=== PATIENT | male | born 1960 | race Asian ===

== ENCOUNTER → 2021-11-04 16:48 | Outpatient (CLI) | payer OTHER, SELFPAY ==
--- NOTE | 2021-11-04 16:52 | DI.RAD.S_ITS ---
PROCEDURE: XR CERVICAL SPINE 2V OR 3V INDICATIONS: chronic neck pain TECHNIQUE: 3 view(s) of the cervical spine were acquired. COMPARISON: None. FINDINGS: Bones: No fractures or dislocations to the T1 level. The lateral masses of C1 appear intact on the odontoid view. No suspicious bony lesions. Soft tissues: No prevertebral soft tissue swelling. IMPRESSION: No acute osseous lesion. If symptoms and/or clinical suspicion for pathology persists, evaluation with MRI should be considered for further assessment. Dictated by: Emmanuelle Ly MD, PhD on 11/05/2021 at 8:07 Approved by: Emmanuelle Ly MD, PhD on 11/05/2021 at 8:26
== END ==
PROVIDERS: PCP Family Medicine; Referring Provider Family Medicine; Visit Provider Family Medicine
DX: M54.2 Cervicalgia (principal); R51.9 Headache, unspecified; G89.29 Other chronic pain
CPT/HCPCS: 72040

== ENCOUNTER → 2022-01-07 09:04 | Outpatient (CLI) | payer OTHER, SELFPAY ==
[2022-01-07 09:50] LABS: Add Manual Diff / Slide Review NO; Basophils Absolute Auto 100 /uL (0-100); Eosinophils Absolute Auto 100 /uL (0-450); Eosinophils Percent Auto 1.8 % (2-4); Hematocrit 44.9 % (41-53); Hemoglobin 15.3 g/dL (13.5-17.5); Lymphocytes Absolute Auto 1700 /uL (1100-4500); Lymphocytes Percent Auto 31.9 % (25-40); Mean Corpuscular HGB Conc 34.1 % (30-36); Monocytes Absolute Auto 300 /uL (0-900); Monocytes Percent Auto 6.7 % (3-14); Neutrophils Absolute Auto 3000 /uL (1500-7000); Neutrophils Percent Auto 58.6 % (50-75); Platelet Count 205 X10^3/uL (150-400); Red Blood Cell Count 5.29 X10^6/uL (4.5-5.9); Red Cell Distribution Width 12.5 % (11.6-14.8); White Blood Cell Count 5.2 X10^3/uL (4.5-11.0)
[2022-01-07 11:59] LABS: Creatinine Urine Random 62.5 mg/dL; Microalbumin Urine Random < 0.6 mg/dL (0-1.6)
[2022-01-08 03:07] LABS: HEMOLYSIS < 15 (0-50)
[2022-01-08 03:13] LABS: Alanine Aminotransferase 34 IU/L (<50); Albumin 4.3 g/dL (3.5-5.0); Albumin Globulin Ratio 1.3 (1.0-2.8); Alkaline Phosphatase 68 U/L (38-126); Aspartate Aminotransferase 33 IU/L (17-59); BUN Creatinine Ratio 16.7 (6-22); Bilirubin Total 0.9 mg/dL (0.2-1.3); Blood Urea Nitrogen 16 mg/dL (9-20); Calcium 8.8 mg/dL (8.4-10.2); Carbon Dioxide 27 mmol/L (22-32); Chloride 105 mmol/L (98-107); Cholesterol 246 mg/dL (140-199); Estimated Glomerular Filt Rate > 60 mL/min (>60); Globulin 3.3 g/dL (1.7-4.1); Glucose 99 mg/dL (80-110); HDL Cholesterol 70 mg/dL (40-60); LDL Cholesterol Calculated 150 mg/dL (<100); Potassium 4.3 mmol/L (3.4-5.1); Sodium 140 mmol/L (137-145); Total Protein 7.6 g/dL (6.3-8.2); Triglycerides 132 mg/dL (35-150)
[2022-01-08 03:43] LABS: TSH w/ Reflex to FT4 0.94 uIU/mL (0.47-4.68)
[2022-01-09 15:07] LABS: Prostate Specific Antigen Scrn 5.64 ng/mL (0.1-4.0)
== END ==
PROVIDERS: PCP Family Medicine; Referring Provider Family Medicine; Visit Provider Family Medicine
DX: E78.5 Hyperlipidemia, unspecified (principal); K21.9 Gastro-esophageal reflux disease without esophagitis; K76.89 Other specified diseases of liver; R97.20 Elevated prostate specific antigen [PSA]; Z12.5 Encounter for screening for malignant neoplasm of prostate
CPT/HCPCS: 36415; 80053; 80061; 82043; 82570; 84443; 85025; G0103

== ENCOUNTER → 2022-05-06 09:25 | Outpatient (CLI) | payer OTHER, SELFPAY ==
[2022-05-06 10:01] LABS: Hemoglobin A1C% w Est Avg Glu 5.5 % (4.0-6.0)
[2022-05-06 10:55] LABS: Prostate Specific Antigen 6.11 ng/mL (0.10-4.00)
== END ==
PROVIDERS: Family Provider Family Medicine; PCP Family Medicine; Referring Provider Specialist; Visit Provider Specialist
DX: R73.03 Prediabetes (principal); R97.20 Elevated prostate specific antigen [PSA]
CPT/HCPCS: 36415; 83036; 84153

== ENCOUNTER → 2022-05-14 07:56 | Outpatient (CLI) | payer OTHER, SELFPAY ==
--- NOTE | 2022-05-14 09:13 | DI.MRI.S_ITS ---
PROCEDURE: MR PELIS WO/W CON INDICATIONS: Prostate CA, elevated PSA TECHNIQUE: Coronal HASTE, axial T1 FSE with fat saturation, 3-plane nonbreath-hold T2 FSE. After the administration of contrast, dynamic axial, delayed axial and coronal VIBE or 2-D FLASH with fat saturation through the pelvis. Optional diffusion weighted imaging and ADC may be performed. COMPARISON: None. FINDINGS: Image quality: Diffusion weighted and dynamic contrast enhanced images are diagnostic. Prostate: Gland size is 4.9 x 3.8 x 4.7 cm; ellipsoid gland volume is 45.5 mL. Lesion size(s): Lesion 1: 0.8 cm in AP diameter measured in the axial T2 plane. Lesion 2: 1.2 cm in the oblique transverse direction measured on the axial T2 sequence. Lesion 3: About 1.1 cm in the AP direction measured on diffusion-weighted imaging. Lesion 4: 0.9 cm in the oblique AP direction Lesion 5: 0.8 cm in the oblique AP direction Lesion location(s) (sector): Lesion 1: Left posterior transition zone at the gland base Lesion 2: Left posterolateral peripheral zone from mid gland to apex Lesion 3: Right central transition zone at the mid gland. Lesion 4: Right central transition zone at the mid gland slightly more caudal than lesion three Lesion 5: Right anterior transition zone at the apex. Lesion description: Lesion 1: Ovoid lesion with indistinct margin. No disruption of the pseudo capsule. Lesion 2: Wedge-shaped indistinct lesion with retraction of the capsule. Lesion 3: Indistinct, heterogeneous area with patchy abnormal signal Lesion 4: Ovoid unencapsulated lesion with an indistinct margin Lesion 5: Ovoid unencapsulated lesion with an indistinct margin T2 weighted imaging (T2WI) morphology score: Lesion 1: Four Lesion 2: Two Lesion 3: Four Lesion 4: Four Lesion 5: Four Diffusion weighted imaging (DWI) morphology score: Lesion 1: Three Lesion 2: Three Lesion 3: Three Lesion 4: Three Lesion 5: Two Dynamic contrast enhancement (DCE): Lesion 1: Present Lesion 2: Present Lesion 3: Present Lesion 4: Absent Lesion 5: Absent Lesion PI-RADS score: Lesion 1: PI-RADS four Lesion 2: PI-RADS three, differential diagnosis of fibrosis/glandular atrophy Lesion 3: PI-RADS four Lesion 4: PI-RADS four, differential diagnosis unencapsulated BPH nodule. Lesion 5: PI-RADS four, differential diagnosis of unencapsulated BPH nodule. Genitourinary system: Bladder wall thickness is normal. Distal ureters are non distended. Bowel and peritoneum: Small amount of dependent free fluid in the pelvis. Inferior colon and small bowel loops are normal in caliber. Nodes and vessels: No pelvic or inguinal adenopathy by size criteria. Iliac vessels are normal in caliber. Soft tissues: No inguinal hernias. Bones: Marrow demonstrates normal overall signal, without lesions to suggest metastases. IMPRESSION: 1. Heterogeneous, minimally enlarged prostate gland with areas indeterminate or mildly suspicious for prostate cancer, PI-RADS three and PI-RADS four. Index lesion is lesion 1. 2. No adenopathy. 3. Nonspecific free fluid in the pelvis. Clinical evaluation recommended. Dictated by: Krysten Shields M.D. on 05/15/2022 at 13:06 Approved by: Krysten Shields M.D. on 05/15/2022 at 14:18
== END ==
PROVIDERS: Family Provider Family Medicine; PCP Family Medicine; Referring Provider Specialist; Visit Provider Specialist
DX: R97.20 Elevated prostate specific antigen [PSA] (principal); N40.1 Benign prostatic hyperplasia with lower urinary tract symptoms; N13.8 Other obstructive and reflux uropathy
CPT/HCPCS: 72197; A9579

== ENCOUNTER → 2022-06-23 06:49 | Outpatient (CLI) | payer OTHER, SELFPAY ==
--- NOTE | 2022-06-23 06:50 | DI.US.S_ITS ---
PROCEDURE: US ABDOMEN LIMITED INDICATIONS: LIVER CYST TECHNIQUE: Real-time focused scanning was performed of the abdomen, with image documentation. COMPARISON: [facility], MR, MR PELVIS WO/W CON, 05/14/2022, 8:01. FINDINGS: The liver demonstrates normal size and overall normal echotexture. Numerous liver cysts are seen. There is a bilobed cyst seen within the right liver anterior to the demetra hepatis measuring 2.1 x 2 x 1.7 cm. Within the right liver laterally, there is an anechoic cyst measuring 4.3 x 3.9 x 4.4 cm. Within the right mid liver anteriorly, there is an anechoic cyst with thin nonvascular septations measuring 1.9 x 1.9 x 1.9 cm. No findings of gallstones or sludge are seen. The gallbladder wall is not thickened, measuring 3 mm or less. No specific pericholecystic fluid is seen. The sonographic Rankin sign is negative. There is no biliary dilatation, the common bile duct measures 6 mm. No significant pancreatic abnormality is seen on these images. No free fluid can be seen. IMPRESSION: Several liver cysts are seen, without shelley, suspicious features. Dictated by: James Villanueva M.D. on 06/23/2022 at 16:49 Approved by: James Villanueva M.D. on 06/23/2022 at 16:51
== END ==
PROVIDERS: Family Provider Family Medicine; PCP Family Medicine; Referring Provider Family Medicine; Visit Provider Family Medicine
DX: K76.89 Other specified diseases of liver (principal)
CPT/HCPCS: 76705

== ENCOUNTER → 2022-07-20 07:18 | Outpatient (CLI) | payer OTHER, SELFPAY ==
--- NOTE | 2022-07-20 07:19 | DI.MRI.S_ITS ---
PROCEDURE: MR HEAD/BRAIN WO CON INDICATIONS: occipital head pain TECHNIQUE: Non-contrast axial T1 spin echo, axial T2 fast spin echo, sagittal and axial FLAIR, coronal T2 fast spin echo, axial gradient echo, axial diffusion and ADC through the brain. COMPARISON: [facility], MR, MR CERVICAL SPINE WO CON, 07/20/2022, 7:38. FINDINGS: Image quality: This examination is limited by involuntary motion artifact. CSF spaces: Ventricles appear symmetric in size and shape. Basal cisterns are patent. No extra-axial fluid collections. Brain: No intracranial bleeds or mass effects. There is cerebral volume loss for age. There are periventricular and deep white matter chronic small vessel ischemic changes. Brainstem appears normal. Diffusion-weighted images show no acute ischemic insults. No chronic ischemic insults. Normal intravascular flow voids are present. Skull and face: Calvarial bone marrow is normal in signal. Orbits are normal. Sinuses: Sinuses and mastoids are clear. IMPRESSION: Unremarkable noncontrast brain MRI for age, without a cause of the patient's presenting symptoms identified. To the limits of this MRI, no findings of masses or mass effect. No brain edema. No hydrocephalus. Dictated by: James Villanueva M.D. on 07/20/2022 at 8:36 Approved by: James Villanueva M.D. on 07/20/2022 at 8:37
--- NOTE | 2022-07-20 07:19 | DI.MRI.S_ITS ---
PROCEDURE: MR CERVICAL SPINE WO CON INDICATIONS: chronic neck pain not improved with PT TECHNIQUE: Noncontrast sagittal T1 spin echo and T2 fast spin echo, sagittal STIR, foraminal oblique sagittal T2 fast spin echo, and axial gradient echo or T2 fast spin echo through the cervical spine. COMPARISON: [facility], MR, MR HEAD/BRAIN WO CON, 07/20/2022, 7:38. [facility], CR, XR CERVICAL SPINE 2V OR 3V, 11/04/2021, 16:57. FINDINGS: Image quality: This examination is limited by involuntary motion artifact. Alignment and Curvature: There is normal bony alignment. Bone Marrow: Marrow demonstrates normal overall signal. Spinal Cord: There is a T2 hyperintense ovoid focus seen within the anterior spinal cord at the C4 level, as on series 5, image 8, measuring up to 5 mm. This demonstrates low signal on T1 weighted imaging. No surrounding edema is seen. Visualized spinal cord otherwise has normal size and signal. No cerebellar tonsillar herniation. Paraspinous Soft Tissues: No paravertebral masses. Prevertebral soft tissues are normal in thickness. C2-C3: The disc height and disk signal are well-preserved. Mild disc osteophyte complex is seen, which is eccentric to the right. Mild facet joint hypertrophy is seen. There is moderate right-sided and mild left-sided neural foraminal narrowing. No central canal narrowing is seen. C3-C4: The disc height is well-preserved. Loss of disc signal is seen at this level. A mild degree of generalized disc osteophyte complex is seen. There is [id number] right-sided and moderate left-sided facet hypertrophy. There is at least moderate left-sided and [id number] right-sided neural foraminal narrowing. Mild central canal narrowing is seen. C4-C5: The disc height and disc signal are relatively well preserved. Moderate disc osteophyte complex is seen, with a central/right disc osteophyte protrusion, as on series 4, image 23. Moderate facet hypertrophy is seen, left worse than right. There is moderate to severe left-sided and at least moderate right-sided neural foraminal narrowing. Mild to moderate central canal narrowing is seen. There is associated mass effect upon the ventral spinal cord. C5-C6: The disc height and disk signal are relatively well-preserved. Mild to moderate disc osteophyte complex is seen, which is eccentric to the right side. Mild to moderate facet hypertrophy is seen, left worse than right. Moderate to severe bilateral neural foraminal narrowing can be seen at this level. Mild to moderate central canal narrowing can be seen. C6-C7: The disc height and disk signal are well-preserved. Mild to moderate disc osteophyte complex is seen. There is mild right-sided and moderate left-sided facet hypertrophy. There is at least moderate bilateral neural foraminal narrowing seen. Mild central canal narrowing is seen. C7-T1: The disc height and disk signal are well-preserved. A minimal to mild degree of generalized disc osteophyte complex is seen. Mild facet joint hypertrophy is seen. Mild bilateral neural foraminal narrowing is seen. The central canal is widely patent. IMPRESSION: Multiple levels of cervical spine degenerative change are seen. There is a 5 mm cystic appearing focus seen within the spinal cord C4 level. This is felt most likely to be related to a benign, incidental cyst. No surrounding edema is seen. If clinically appropriate, please consider a follow-up cervical spine MRI with IV contrast for further evaluation. Dictated by: James Villanueva M.D. on 07/20/2022 at 8:37 Approved by: James Villanueva M.D. on 07/20/2022 at 8:47
== END ==
PROVIDERS: Family Provider Family Medicine; PCP Family Medicine; Referring Provider Family Medicine; Visit Provider Family Medicine
DX: M47.812 Spondylosis without myelopathy or radiculopathy, cervical region (principal); R51.9 Headache, unspecified; M54.2 Cervicalgia; G89.29 Other chronic pain
CPT/HCPCS: 70551; 72141

== ENCOUNTER 2022-08-18 16:00 | Outpatient (RCR) | payer OTHER, SELFPAY ==
--- NOTE | 2022-05-12 12:22 | PT.OIE ---
Current Diagnoses Other chronic pain (05/12/22) Cervicalgia (05/12/22) Headache, unspecified (05/12/22) Past Medical History (Last Reviewed 05/10/22 @ 10:37 by Jacey Ramirez MD) Allergic rhinitis (~1997) BPH w urinary obs/LUTS (~2009) Chronic back pain (~2007) Chronic insomnia Elevated PSA (~2017) GERD (gastroesophageal reflux disease) (~1997) Headache (~2019) Hemorrhoid (~2009) Hepatic cyst Hyperlipidemia Irritable bowel syndrome (~2004) Occipital pain Visit Care Team Role Provider Type Rosaura Brantley MD Other Providers Physician Specialty: Orthopedics Orthopedic Surgery Address: [address] [place] [address], [id number] Email: [email or web address] Attending Provider Physician Family Provider Primary Care Provider Referring Provider Specialty: Family Practice Address: [address] [place] [address], [address] Email: [email or web address] Physical Therapy Initial Evaluation PT-OP-A Visit Information Start: 05/05/22 11:36 Freq: Status: Active Protocol: Document 05/12/22 09:15 [facility] (Rec: 05/12/22 12:22 [facility] [id number]) Out-Patient Physical Therapy Visit Information Visit Information Visit Type Initial Evaluation Visit Start Time 09:52 Visit Stop Time 10:35 Total Visit Minutes 43 Visit Number 1 Number of SPRAY BOOTH OPERATOR Visits 0 PT-OP-B Current Condition Start: 05/05/22 11:36 Freq: Status: Active Protocol: Document 05/12/22 09:15 [facility] (Rec: 05/12/22 12:22 [facility] [id number]) Current Condition History of Current Condition Onset Date 2-3 years Current Complaints post head and neck pain History of Current Condition Pt reprots tension in post neck w/looking up and to sides . 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 Pt reports when he wakes up, he has pain. He wakes up in the middle of the night (sometimes just d/t going to bathroom). He has to stretch to get to bed. He doen 't take pain meds d/t not helpful. He hasn't tried ice or heat yet. Initially it felt like buring but now it is more like mm pain. Pt reports after a bad flu, the pain started about 2-3 years ago. He has an appt with Dr. Brantley next week. Pt reports he has back pain that limits him and B knee pain. L knee has some tingling pain since a few weeks ago. Pt reports he has occasional dizziness that just sometimes happens about 1x/ week or every couple weeks. Denies pain in any other part of his head. Denies lightheadedness or numbness or tingling. Prior Treatments and Tests Xray: IMPRESSION: No acute osseous lesion. If symptoms and/or clinical suspicion for pathology persists, evaluation with MRI should be considered for further assessment. PT-OP-C Subjective Start: 05/05/22 11:36 Freq: Status: Active Protocol: Document 05/12/22 09:15 [facility] (Rec: 05/12/22 12:22 [facility] [id number]) Patient Questionnaires Neck Disability Index NDI Score 7/50 OP-PT Pain Assessment Location post head Pain Location Details occiput Intensity 5 Scale Used best 2/10 Description Tightness,With Movement Frequency Constant Other Pain Aggravating Factors when wake up, look up and R Other Pain Alleviating Factors stretch PT-OP-F Manual Assessment Start: 05/05/22 11:36 Freq: Status: Active Protocol: Document 05/12/22 09:15 [facility] (Rec: 05/12/22 12:22 [facility] [id number]) Manual Assessments Soft Tissue Assessment Soft Tissue Mobility Assessment SO, paraspinals, UT, SCM & scalene tightness along w/ temporalis Joint Mobility Assessment Joint Mobility Assessment L rotated & L sheared C1; R rotated and R sheard C2 PT-OP-J Posture/Palpation/Skin Start: 05/05/22 11:36 Freq: Status: Active Protocol: Document 05/12/22 09:15 [facility] (Rec: 05/12/22 12:22 [facility] [id number]) Posture Evaluation Comments Posture Comments some inc kyphosis, fwd head, OA ext; sits very slouched PT-OP-K Range of Motion Start: 05/05/22 11:36 Freq: Status: Active Protocol: Document 05/12/22 09:15 [facility] (Rec: 05/12/22 12:22 [facility] [id number]) Cervical Spine Range of Motion Cervical Spine Active Degrees Flexion 43 Extension 32 Rotation Left 53 Rotation Right 54 Lateral Flexion Left 30 Lateral Flexion Right 35 Comments pain L w/R SB, pain post w/ flex, pain rotation R>L PT-OP-L Special Tests Start: 05/05/22 11:36 Freq: Status: Active Protocol: Document 05/12/22 09:15 [facility] (Rec: 05/12/22 12:22 [facility] [id number]) Special Tests Cervical Spine Special Tests Spurling's Test Test Results neg Vertebral Artery Test Results neg B Alar Ligament Test Results neg PT-OP-Q Treatments Start: 05/05/22 11:36 Freq: Status: Active Protocol: Document 05/12/22 09:15 [facility] (Rec: 05/12/22 12:22 [facility] [id number]) Manual Therapy Treatment Soft Tissue Mobilization ant Body Location B SCM Mobilization Type Rolling Intensity/Depth Moderate Body Position Supine post Body Location paraspinals Mobilization Type Rolling Intensity/Depth Moderate Body Position Supine SO Body Location R>L Mobilization Type Sustained Pressure Intensity/Depth Moderate Body Position Supine Self-Care/Home Management Treatment Education Other Education pt shown pictures of dermatome map and anatomy of neck. Discussed C1-3 possible involvement along w/discussed how far the mm go and discussed importance of posture PT-OP-T Assessment and Plan Start: 05/05/22 11:36 Freq: Status: Active Protocol: Document 05/12/22 09:15 [facility] (Rec: 05/12/22 12:22 [facility] [id number]) Physical Therapy Assessment Rehab Potential Rehabilitation Potential Good Evaluation Complexity Number of Personal Factors/Comorbidities 1-2 Number of Body Systems Impaired 4 or More Clinical Presentation at Evaluation Stable Impairments Impairments Activity Tolerance,Functional Activities,Functional Mobility ,Pain,Posture,ROM,Soft Tissue Mobility Goals NDI Impairment 7/50 Addiction Professional Goal (LTG) Pt will imrpove score to no greater than 2/50 to show improved function and dec pain LTG Duration 08/02/22 pain Short Term Goal (STG) Pt will report pain no more than 4 days a week. STG Duration 07/07/22 Addiction Professional Goal (LTG) Pt will report no greater than 1/10 pain no more than 2x/ week. LTG Duration 08/02/22 ROM Short Term Goal (STG) Pt will be indep w/HEP STG Duration 07/07/22 Detention Goal (LTG) Pt will have full neck ROM w/o inc pain at end ranges to allow for typical daily activities like drivign w/o inc pain. LTG Duration 08/02 ergonomics Short Term Goal (STG) Pt will bring in pic of desk set up and will make changes recommended by PT to set desk up more ergonomically. STG Duration 06/12 Detention Goal (LTG) Pt will bring in pic of sleep set up and will make changes recommended by PT to more ergonomically. LTG Duration 07/17/22 Assessment Summary Assessment Pt presents w/chronic neck pain and post occiput pain starting about 2.5 years ago w /o known reason of onset. Xrays did not show anything, but pt does sit and stand w/ significant fwd head and OA ext. He was encouraged to bring a picture of his desk set up and would likely benefit from ergonomic education for both desk and sleep position. Pt's inc kyphosis and fwd head position create inc OA ext and inc pressure on upper cervical vertebrae which is likely causing pain along w/tightness of post chain neck mm. Pt would beneftit from skilled PT in order to dec pain. Physical Therapy Plan Frequency and Duration Frequency of Treatment 1-2x/week Duration of treatment (weeks) 12 Plan of Care Start Date 05/12/22 Plan of Care End Date 08/04/22 Therapeutic Interventions Therapeutic Interventions Home Exercise Program,Joint Mobilizations,Manual Therapy, Neuromuscular Re-education, Patient/Caregiver Education, Self-Care/Home Management,Soft Tissue Mobilization,Taping, Therapeutic Activities, Therapeutic Exercises Modalities Cold Pack/Ice Massage,Electric Stimulation,Hot Packs, Traction- Mechanical, Ultrasound Next Visit Focus/Plan Next Note Type Treatment Note Next Visit Plan Cervical stretches, chin tucks , wall posture, check picture of pt desk set up if pt brings , manual to upper cervical & mm of neck; ask pt to bring a picture of his sleep set up
--- NOTE | 2022-05-12 12:22 | PT.OPPOC ---
Physical, Occupational & Speech Therapy At [facility] Current Diagnoses Other chronic pain (05/12/22) Cervicalgia (05/12/22) Headache, unspecified (05/12/22) Visit Care Team Role Provider Type Rosaura Brantley MD Other Providers Physician Specialty: Orthopedics Orthopedic Surgery Address: [address] [place] [address], [id number] Email: [email or web address] Callum Osei MD Attending Provider Physician Family Provider Primary Care Provider Referring Provider Specialty: Family Practice Address: [address] [place] [address], [address] Email: [email or web address] Plan Of Care PT-OP-T Assessment and Plan Start: 05/05/22 11:36 Freq: Status: Active Protocol: Document 05/12/22 09:15 [facility] (Rec: 05/12/22 12:22 [facility] [id number]) Physical Therapy Assessment Rehab Potential Rehabilitation Potential Good Evaluation Complexity Number of Personal Factors/Comorbidities 1-2 Number of Body Systems Impaired 4 or More Clinical Presentation at Evaluation Stable Impairments Impairments Activity Tolerance,Functional Activities,Functional Mobility ,Pain,Posture,ROM,Soft Tissue Mobility Goals NDI Impairment 7/50 National Secretary Goal (LTG) Pt will imrpove score to no greater than 2/50 to show improved function and dec pain LTG Duration 08/02/22 pain Short Term Goal (STG) Pt will report pain no more than 4 days a week. STG Duration 07/07/22 Fpc Goal (LTG) Pt will report no greater than 1/10 pain no more than 2x/ week. LTG Duration 08/02/22 ROM Short Term Goal (STG) Pt will be indep w/HEP STG Duration 07/07/22 National Secretary Goal (LTG) Pt will have full neck ROM w/o inc pain at end ranges to allow for typical daily activities like drivign w/o inc pain. LTG Duration 08/02 ergonomics Short Term Goal (STG) Pt will bring in pic of desk set up and will make changes recommended by PT to set desk up more ergonomically. STG Duration 06/12 National Secretary Goal (LTG) Pt will bring in pic of sleep set up and will make changes recommended by PT to more ergonomically. LTG Duration 07/17/22 Assessment Summary Assessment Pt presents w/chronic neck pain and post occiput pain starting about 2.5 years ago w /o known reason of onset. Xrays did not show anything, but pt does sit and stand w/ significant fwd head and OA ext. He was encouraged to bring a picture of his desk set up and would likely benefit from ergonomic education for both desk and sleep position. Pt's inc kyphosis and fwd head position create inc OA ext and inc pressure on upper cervical vertebrae which is likely causing pain along w/tightness of post chain neck mm. Pt would beneftit from skilled PT in order to dec pain. Physical Therapy Plan Frequency and Duration Frequency of Treatment 1-2x/week Duration of treatment (weeks) 12 Plan of Care Start Date 05/12/22 Plan of Care End Date 08/04/22 Therapeutic Interventions Therapeutic Interventions Home Exercise Program,Joint Mobilizations,Manual Therapy, Neuromuscular Re-education, Patient/Caregiver Education, Self-Care/Home Management,Soft Tissue Mobilization,Taping, Therapeutic Activities, Therapeutic Exercises Modalities Cold Pack/Ice Massage,Electric Stimulation,Hot Packs, Traction- Mechanical, Ultrasound Next Visit Focus/Plan Next Note Type Treatment Note Next Visit Plan Cervical stretches, chin tucks , wall posture, check picture of pt desk set up if pt brings , manual to upper cervical & mm of neck; ask pt to bring a picture of his sleep set up Plan of Care Dates Plan of Care Start Date 05/12/22 Plan of Care End Date 08/04/22 Electronically Signed by: Angelika Frausto, PT 05/12/22 1445 If you are in agreement with this Plan of Care, please return a signed and dated copy. I have reviewed this Plan of Care and certify that the skilled therapy services above are required to meet the patient?s needs. Physician Signature Date Printed Name and Credentials Clinical Instructor Signature Printed Name and Credentials
--- NOTE | 2022-05-17 14:34 | PT.OTN ---
Current Diagnoses Other chronic pain (05/17/22) Cervicalgia (05/17/22) Headache, unspecified (05/17/22) Physical Therapy Treatment Note PT-OP-A Visit Information Start: 05/05/22 11:36 Freq: Status: Active Protocol: Document 05/17/22 09:54 [facility] (Rec: 05/17/22 14:34 [facility] [id number]) Out-Patient Physical Therapy Visit Information Visit Information Visit Type Treatment Note Visit Start Time 09:57 Visit Stop Time 10:46 Total Visit Minutes 49 Visit Number 2 Number of CANVAS WORKER APPRENTICE Visits 0 PT-OP-B Current Condition Start: 05/05/22 11:36 Freq: Status: Active Protocol: Document 05/12/22 09:15 [facility] (Rec: 05/12/22 12:22 [facility] [id number]) Current Condition History of Current Condition Onset Date 2-3 years Current Complaints post head and neck pain History of Current Condition Pt reprots tension in post neck w/looking up and to sides . 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 Pt reports when he wakes up, he has pain. He wakes up in the middle of the night (sometimes just d/t going to bathroom). He has to stretch to get to bed. He doen 't take pain meds d/t not helpful. He hasn't tried ice or heat yet. Initially it felt like buring but now it is more like mm pain. Pt reports after a bad flu, the pain started about 2-3 years ago. He has an appt with Dr. Brantley next week. Pt reports he has back pain that limits him and B knee pain. L knee has some tingling pain since a few weeks ago. Pt reports he has occasional dizziness that just sometimes happens about 1x/ week or every couple weeks. Denies pain in any other part of his head. Denies lightheadedness or numbness or tingling. Prior Treatments and Tests Xray: IMPRESSION: No acute osseous lesion. If symptoms and/or clinical suspicion for pathology persists, evaluation with MRI should be considered for further assessment. PT-OP-C Subjective Start: 05/05/22 11:36 Freq: Status: Active Protocol: Document 05/17/22 09:54 [facility] (Rec: 05/17/22 14:34 [facility] [id number]) OP-PT Subjective Patient Comments Patient Comments Pt reports he cancelled his ortho appt. Unsure who he is supposed to go see for this problem PT-OP-F Manual Assessment Start: 05/05/22 11:36 Freq: Status: Active Protocol: Document 05/12/22 09:15 [facility] (Rec: 05/12/22 12:22 [facility] [id number]) Manual Assessments Soft Tissue Assessment Soft Tissue Mobility Assessment SO, paraspinals, UT, SCM & scalene tightness along w/ temporalis Joint Mobility Assessment Joint Mobility Assessment L rotated & L sheared C1; R rotated and R sheard C2 PT-OP-J Posture/Palpation/Skin Start: 05/05/22 11:36 Freq: Status: Active Protocol: Document 05/12/22 09:15 [facility] (Rec: 05/12/22 12:22 [facility] [id number]) Posture Evaluation Comments Posture Comments some inc kyphosis, fwd head, OA ext; sits very slouched PT-OP-K Range of Motion Start: 05/05/22 11:36 Freq: Status: Active Protocol: Document 05/12/22 09:15 [facility] (Rec: 05/12/22 12:22 [facility] [id number]) Cervical Spine Range of Motion Cervical Spine Active Degrees Flexion 43 Extension 32 Rotation Left 53 Rotation Right 54 Lateral Flexion Left 30 Lateral Flexion Right 35 Comments pain L w/R SB, pain post w/ flex, pain rotation R>L PT-OP-L Special Tests Start: 05/05/22 11:36 Freq: Status: Active Protocol: Document 05/12/22 09:15 [facility] (Rec: 05/12/22 12:22 [facility] [id number]) Special Tests Cervical Spine Special Tests Spurling's Test Test Results neg Vertebral Artery Test Results neg B Alar Ligament Test Results neg PT-OP-Q Treatments Start: 05/05/22 11:36 Freq: Status: Active Protocol: Document 05/17/22 09:54 [facility] (Rec: 05/17/22 14:34 [facility] [id number]) Therapeutic Exercises Sitting Exercises chin tuck Reps/Minutes 15 stretches Sitting Exercise Name 1. UT 2. LS Comments attempted scalene but felt post Standing Exercises wall posture Side bilateral Reps/Minutes 1 min Comments w/B UE ext to wall and ER Manual Therapy Treatment Soft Tissue Mobilization ant Body Location B SCM Mobilization Type Rolling Intensity/Depth Moderate Body Position Supine post Body Location paraspinals Mobilization Type Rolling Intensity/Depth Moderate Body Position Supine SO Body Location R>L Mobilization Type Sustained Pressure Intensity/Depth Moderate Body Position Supine Joint Mobilizations Cervical Comments C1-2 gapping Manual Traction Cervical Reps/Duration 30 sec x2 Self-Care/Home Management Treatment Education Other Education edu for how to prop pt's head when sleeping and what is neutral. Edu for posture and how to get into good posture and why it is important. Edu how to set himself up wella t his desk PT-OP-R Modalities Start: 05/05/22 11:36 Freq: Status: Active Protocol: Document 05/17/22 09:54 [facility] (Rec: 05/17/22 14:34 [facility] [id number]) Hot Pack/Cold Pack Treatment Hot Pack Location cervical Patient Position Supine Treatment Duration (minutes) 10 PT-OP-T Assessment and Plan Start: 05/05/22 11:36 Freq: Status: Active Protocol: Document 05/17/22 09:54 [facility] (Rec: 05/17/22 14:34 [facility] [id number]) Physical Therapy Assessment Goals NDI Impairment 7/50 Glass Sander Goal (LTG) Pt will imrpove score to no greater than 2/50 to show improved function and dec pain LTG Duration 08/02/22 pain Short Term Goal (STG) Pt will report pain no more than 4 days a week. STG Duration 07/07/22 [facility]ci Goal (LTG) Pt will report no greater than 1/10 pain no more than 2x/ week. LTG Duration 08/02/22 ROM Short Term Goal (STG) Pt will be indep w/HEP STG Duration 07/07/22 Glass Sander Goal (LTG) Pt will have full neck ROM w/o inc pain at end ranges to allow for typical daily activities like drivign w/o inc pain. LTG Duration 08/02 ergonomics Short Term Goal (STG) Pt will bring in pic of desk set up and will make changes recommended by PT to set desk up more ergonomically. STG Duration 06/12 [facility] Goal (LTG) Pt will bring in pic of sleep set up and will make changes recommended by PT to more ergonomically. LTG Duration 07/17/22 Assessment Summary Assessment Pt receptive to education with desk, posturea nd sleep set up. He was encoruage to bring pics so PT has a better idea of his typical set up. He has some upper tspine restriction that is likely contributing to neck and head pain. Pt reproted reliefw /heat. Physical Therapy Plan Frequency and Duration Frequency of Treatment 1-2x/week Duration of treatment (weeks) 12 Plan of Care Start Date 05/12/22 Plan of Care End Date 08/04/22 Next Visit Focus/Plan Next Note Type Treatment Note Next Visit Plan Review:Cervical stretches, chin tucks, wall posture, manual to upper cervical & mm of neck; look carmelita bring a picture of his sleep set up and desk set up
--- NOTE | 2022-05-31 10:37 | PT.OTN ---
Current Diagnoses Other chronic pain (05/31/22) Cervicalgia (05/31/22) Headache, unspecified (05/31/22) Physical Therapy Treatment Note PT-OP-A Visit Information Start: 05/05/22 11:36 Freq: Status: Active Protocol: Document 05/31/22 09:44 [facility] (Rec: 05/31/22 10:37 [facility] [id number]) Out-Patient Physical Therapy Visit Information Visit Information Visit Type Treatment Note Visit Start Time 09:46 Visit Stop Time 10:32 Total Visit Minutes 46 Visit Number 3 Number of LIME BOILER Visits 0 PT-OP-B Current Condition Start: 05/05/22 11:36 Freq: Status: Active Protocol: Document 05/12/22 09:15 [facility] (Rec: 05/12/22 12:22 [facility] [id number]) Current Condition History of Current Condition Onset Date 2-3 years Current Complaints post head and neck pain History of Current Condition Pt reprots tension in post neck w/looking up and to sides . 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 Pt reports when he wakes up, he has pain. He wakes up in the middle of the night (sometimes just d/t going to bathroom). He has to stretch to get to bed. He doen 't take pain meds d/t not helpful. He hasn't tried ice or heat yet. Initially it felt like buring but now it is more like mm pain. Pt reports after a bad flu, the pain started about 2-3 years ago. He has an appt with Dr. Brantley next week. Pt reports he has back pain that limits him and B knee pain. L knee has some tingling pain since a few weeks ago. Pt reports he has occasional dizziness that just sometimes happens about 1x/ week or every couple weeks. Denies pain in any other part of his head. Denies lightheadedness or numbness or tingling. Prior Treatments and Tests Xray: IMPRESSION: No acute osseous lesion. If symptoms and/or clinical suspicion for pathology persists, evaluation with MRI should be considered for further assessment. PT-OP-C Subjective Start: 05/05/22 11:36 Freq: Status: Active Protocol: Document 05/31/22 09:44 [facility] (Rec: 05/31/22 10:37 [facility] [id number]) OP-PT Subjective Patient Comments Patient Comments Pt report doing exercises some . Pain most at night PT-OP-F Manual Assessment Start: 05/05/22 11:36 Freq: Status: Active Protocol: Document 05/12/22 09:15 [facility] (Rec: 05/12/22 12:22 [facility] [id number]) Manual Assessments Soft Tissue Assessment Soft Tissue Mobility Assessment SO, paraspinals, UT, SCM & scalene tightness along w/ temporalis Joint Mobility Assessment Joint Mobility Assessment L rotated & L sheared C1; R rotated and R sheard C2 PT-OP-J Posture/Palpation/Skin Start: 05/05/22 11:36 Freq: Status: Active Protocol: Document 05/12/22 09:15 [facility] (Rec: 05/12/22 12:22 [facility] [id number]) Posture Evaluation Comments Posture Comments some inc kyphosis, fwd head, OA ext; sits very slouched PT-OP-K Range of Motion Start: 05/05/22 11:36 Freq: Status: Active Protocol: Document 05/12/22 09:15 [facility] (Rec: 05/12/22 12:22 [facility] [id number]) Cervical Spine Range of Motion Cervical Spine Active Degrees Flexion 43 Extension 32 Rotation Left 53 Rotation Right 54 Lateral Flexion Left 30 Lateral Flexion Right 35 Comments pain L w/R SB, pain post w/ flex, pain rotation R>L PT-OP-L Special Tests Start: 05/05/22 11:36 Freq: Status: Active Protocol: Document 05/12/22 09:15 [facility] (Rec: 05/12/22 12:22 [facility] [id number]) Special Tests Cervical Spine Special Tests Spurling's Test Test Results neg Vertebral Artery Test Results neg B Alar Ligament Test Results neg PT-OP-Q Treatments Start: 05/05/22 11:36 Freq: Status: Active Protocol: Document 05/31/22 09:44 [facility] (Rec: 05/31/22 10:37 [facility] [id number]) Therapeutic Exercises Sitting Exercises chin tuck Reps/Minutes 15 Comments max cues including tactile stretches Sitting Exercise Name 1. UT 2. LS 3.SO Reps/Minutes 30 sec ea Standing Exercises rows Side bilateral Equipment Used L2 Reps/Minutes 15 Comments cues for scap wall posture Side bilateral Reps/Minutes 1 min Comments w/B UE ext to wall and ER Manual Therapy Treatment Soft Tissue Mobilization ant Body Location B SCM R>L Mobilization Type Rolling Intensity/Depth Moderate Body Position Supine post Body Location paraspinals & UT B Mobilization Type Rolling Intensity/Depth Moderate Body Position Supine SO Body Location R>L Mobilization Type Sustained Pressure Intensity/Depth Moderate Body Position Supine Joint Mobilizations thoracic Comments AP T1 & 2 Transverse L T3: T1 R Cervical Comments C1 transverse L Manual Traction Cervical Reps/Duration 30 sec x2 PT-OP-R Modalities Start: 05/05/22 11:36 Freq: Status: Active Protocol: Document 05/17/22 09:54 [facility] (Rec: 05/17/22 14:34 [facility] [id number]) Hot Pack/Cold Pack Treatment Hot Pack Location cervical Patient Position Supine Treatment Duration (minutes) 10 PT-OP-T Assessment and Plan Start: 05/05/22 11:36 Freq: Status: Active Protocol: Document 05/31/22 09:44 [facility] (Rec: 05/31/22 10:37 [facility] [id number]) Physical Therapy Assessment Goals NDI Impairment 7/50 Financial Representative Goal (LTG) Pt will imrpove score to no greater than 2/50 to show improved function and dec pain LTG Duration 08/02/22 pain Short Term Goal (STG) Pt will report pain no more than 4 days a week. STG Duration 07/07/22 Financial Representative Goal (LTG) Pt will report no greater than 1/10 pain no more than 2x/ week. LTG Duration 08/02/22 ROM Short Term Goal (STG) Pt will be indep w/HEP STG Duration 07/07/22 Senior Care Goal (LTG) Pt will have full neck ROM w/o inc pain at end ranges to allow for typical daily activities like drivign w/o inc pain. LTG Duration 08/02 ergonomics Short Term Goal (STG) Pt will bring in pic of desk set up and will make changes recommended by PT to set desk up more ergonomically. STG Duration 06/12 Financial Representative Goal (LTG) Pt will bring in pic of sleep set up and will make changes recommended by PT to more ergonomically. LTG Duration 07/17/22 Assessment Summary Assessment Pt required ceus w/all exercises. Max cues during session for posture and pt educated on importance of posture. relief noted w/manual Physical Therapy Plan Frequency and Duration Frequency of Treatment 1-2x/week Duration of treatment (weeks) 12 Plan of Care Start Date 05/12/22 Plan of Care End Date 08/04/22 Next Visit Focus/Plan Next Note Type Treatment Note Next Visit Plan Review:Cervical stretches, chin tucks, wall posture, manual to upper cervical & mm of neck; cont to wrok cervical stability, look at pic if bring a picture of his sleep set up and desk set up
--- NOTE | 2022-06-27 12:12 | PT.OTN ---
Current Diagnoses Other chronic pain (06/27/22) Cervicalgia (06/27/22) Headache, unspecified (06/27/22) Physical Therapy Treatment Note PT-OP-A Visit Information Start: 05/05/22 11:36 Freq: Status: Active Protocol: Document 06/27/22 11:18 [facility] (Rec: 06/27/22 12:12 [facility] [id number]) Out-Patient Physical Therapy Visit Information Visit Information Visit Type Treatment Note Visit Start Time 11:20 Visit Stop Time 12:02 Total Visit Minutes 42 Visit Number 4 Number of DIVISIONAL MERCHANDISING MANAGER Visits 0 PT-OP-B Current Condition Start: 05/05/22 11:36 Freq: Status: Active Protocol: Document 05/12/22 09:15 [facility] (Rec: 05/12/22 12:22 [facility] [id number]) Current Condition History of Current Condition Onset Date 2-3 years Current Complaints post head and neck pain History of Current Condition Pt reprots tension in post neck w/looking up and to sides . 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 Pt reports when he wakes up, he has pain. He wakes up in the middle of the night (sometimes just d/t going to bathroom). He has to stretch to get to bed. He doen 't take pain meds d/t not helpful. He hasn't tried ice or heat yet. Initially it felt like buring but now it is more like mm pain. Pt reports after a bad flu, the pain started about 2-3 years ago. He has an appt with Dr. Brantley next week. Pt reports he has back pain that limits him and B knee pain. L knee has some tingling pain since a few weeks ago. Pt reports he has occasional dizziness that just sometimes happens about 1x/ week or every couple weeks. Denies pain in any other part of his head. Denies lightheadedness or numbness or tingling. Prior Treatments and Tests Xray: IMPRESSION: No acute osseous lesion. If symptoms and/or clinical suspicion for pathology persists, evaluation with MRI should be considered for further assessment. PT-OP-C Subjective Start: 05/05/22 11:36 Freq: Status: Active Protocol: Document 06/27/22 11:18 [facility] (Rec: 06/27/22 12:12 [facility] [id number]) OP-PT Subjective Patient Comments Patient Comments Pt reports he feels the most pain at night or when sitting PT-OP-F Manual Assessment Start: 05/05/22 11:36 Freq: Status: Active Protocol: Document 05/12/22 09:15 [facility] (Rec: 05/12/22 12:22 [facility] [id number]) Manual Assessments Soft Tissue Assessment Soft Tissue Mobility Assessment SO, paraspinals, UT, SCM & scalene tightness along w/ temporalis Joint Mobility Assessment Joint Mobility Assessment L rotated & L sheared C1; R rotated and R sheard C2 PT-OP-J Posture/Palpation/Skin Start: 05/05/22 11:36 Freq: Status: Active Protocol: Document 05/12/22 09:15 [facility] (Rec: 05/12/22 12:22 [facility] [id number]) Posture Evaluation Comments Posture Comments some inc kyphosis, fwd head, OA ext; sits very slouched PT-OP-K Range of Motion Start: 05/05/22 11:36 Freq: Status: Active Protocol: Document 05/12/22 09:15 [facility] (Rec: 05/12/22 12:22 [facility] [id number]) Cervical Spine Range of Motion Cervical Spine Active Degrees Flexion 43 Extension 32 Rotation Left 53 Rotation Right 54 Lateral Flexion Left 30 Lateral Flexion Right 35 Comments pain L w/R SB, pain post w/ flex, pain rotation R>L PT-OP-L Special Tests Start: 05/05/22 11:36 Freq: Status: Active Protocol: Document 05/12/22 09:15 [facility] (Rec: 05/12/22 12:22 [facility] [id number]) Special Tests Cervical Spine Special Tests Spurling's Test Test Results neg Vertebral Artery Test Results neg B Alar Ligament Test Results neg PT-OP-Q Treatments Start: 05/05/22 11:36 Freq: Status: Active Protocol: Document 06/27/22 11:18 [facility] (Rec: 06/27/22 12:12 [facility] [id number]) Therapeutic Exercises Sitting Exercises chin tuck Equipment Used lvl 1 Reps/Minutes 15 Comments max cues including tactile stretches Sitting Exercise Name 1. UT 2. LS 3.SO Reps/Minutes 30 sec ea Standing Exercises rows Side bilateral Equipment Used L2 Reps/Minutes 15 Comments cues for scap wall posture Side bilateral Reps/Minutes 1 min Comments w/B UE ext to wall and ER Manual Therapy Treatment Soft Tissue Mobilization ant Body Location B SCM R>L Mobilization Type Rolling Intensity/Depth Moderate Body Position Supine post Body Location paraspinals & UT B Mobilization Type Rolling Intensity/Depth Moderate Body Position Supine SO Body Location B Mobilization Type Sustained Pressure Intensity/Depth Moderate Body Position Supine Joint Mobilizations Cervical Comments C2 transverse L C1 transverse R C5 transverse L FM Self-Care/Home Management Treatment Education Other Education edu for how to prop pt's head when sleeping and what is neutral with pt on wedge like he does at home. Edu that he shouldn't sleep w/towel roll under neck w/neck in ext. Edu for supporting head and why thi important. Edu for posture and how to get into good posture and why it is important. Edu why thoracic position affects cervical and use of model for demo 10 min PT-OP-R Modalities Start: 05/05/22 11:36 Freq: Status: Active Protocol: Document 05/17/22 09:54 [facility] (Rec: 05/17/22 14:34 [facility] [id number]) Hot Pack/Cold Pack Treatment Hot Pack Location cervical Patient Position Supine Treatment Duration (minutes) 10 PT-OP-T Assessment and Plan Start: 05/05/22 11:36 Freq: Status: Active Protocol: Document 06/27/22 11:18 [facility] (Rec: 06/27/22 12:12 [facility] [id number]) Physical Therapy Assessment Goals NDI Impairment 7/50 Fdc Goal (LTG) Pt will imrpove score to no greater than 2/50 to show improved function and dec pain LTG Duration 08/02/22 pain Short Term Goal (STG) Pt will report pain no more than 4 days a week. STG Duration 07/07/22 Fdc Goal (LTG) Pt will report no greater than 1/10 pain no more than 2x/ week. LTG Duration 08/02/22 ROM Short Term Goal (STG) Pt will be indep w/HEP STG Duration 07/07/22 Manager Play Goal (LTG) Pt will have full neck ROM w/o inc pain at end ranges to allow for typical daily activities like drivign w/o inc pain. LTG Duration 08/02 ergonomics Short Term Goal (STG) Pt will bring in pic of desk set up and will make changes recommended by PT to set desk up more ergonomically. STG Duration 06/12 Fdc Goal (LTG) Pt will bring in pic of sleep set up and will make changes recommended by PT to more ergonomically. LTG Duration 07/17/22 Assessment Summary Assessment Pt required heavy education w/ sleep psotion and that it was okay to stretch w/roll under neck but that nek ext is not a good position to sleep especailly not with head unsupported. Signfiianct time spent with this. cont edu re: importance of posture. Physical Therapy Plan Frequency and Duration Frequency of Treatment 1-2x/week Duration of treatment (weeks) 12 Plan of Care Start Date 05/12/22 Plan of Care End Date 08/04/22 Next Visit Focus/Plan Next Note Type Treatment Note Next Visit Plan Review:Cervical stretches, chin tucks, wall posture, manual to upper cervical & mm of neck; cont to wrok cervical stability, look at pic if bring a picture of his sleep set up and desk set up
--- NOTE | 2022-07-28 17:39 | PT-OP ANOTE ---
Addendum entered and electronically signed by Angelika Frausto, PT 08/01/22 18:03: Pt called again at 1800 on 08/01 to touch base. Message left re: next visit time and PT's email and phone if he needs to get ahold of her prior to then. Original Note: Attempted to call pt at 1739 07/28 as pt asked for call re: his care. Message left noting next appt time and that therapist would try to call again at later time.
--- NOTE | 2022-08-03 13:51 | PT.OTN ---
Current Diagnoses Other chronic pain (08/03/22) Cervicalgia (08/03/22) Headache, unspecified (08/03/22) Physical Therapy Treatment Note PT-OP-A Visit Information Start: 05/05/22 11:36 Freq: Status: Active Protocol: Document 08/03/22 13:00 [facility] (Rec: 08/03/22 13:51 [facility] [id number]) Out-Patient Physical Therapy Visit Information Visit Information Visit Type Progress Note Visit Start Time 13:02 Visit Stop Time 13:55 Total Visit Minutes 53 Visit Number 5 Number of ASSISTANT PROFESSOR OF DIETETICS Visits 0 PT-OP-B Current Condition Start: 05/05/22 11:36 Freq: Status: Active Protocol: Document 05/12/22 09:15 [facility] (Rec: 05/12/22 12:22 [facility] [id number]) Current Condition History of Current Condition Onset Date 2-3 years Current Complaints post head and neck pain History of Current Condition Pt reprots tension in post neck w/looking up and to sides . 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 Pt reports when he wakes up, he has pain. He wakes up in the middle of the night (sometimes just d/t going to bathroom). He has to stretch to get to bed. He doen 't take pain meds d/t not helpful. He hasn't tried ice or heat yet. Initially it felt like buring but now it is more like mm pain. Pt reports after a bad flu, the pain started about 2-3 years ago. He has an appt with Dr. Brantley next week. Pt reports he has back pain that limits him and B knee pain. L knee has some tingling pain since a few weeks ago. Pt reports he has occasional dizziness that just sometimes happens about 1x/ week or every couple weeks. Denies pain in any other part of his head. Denies lightheadedness or numbness or tingling. Prior Treatments and Tests Xray: IMPRESSION: No acute osseous lesion. If symptoms and/or clinical suspicion for pathology persists, evaluation with MRI should be considered for further assessment. PT-OP-C Subjective Start: 05/05/22 11:36 Freq: Status: Active Protocol: Document 08/03/22 13:00 [facility] (Rec: 08/03/22 13:51 [facility] [id number]) OP-PT Subjective Patient Comments Patient Comments Pt reports he cont to do exercises Patient Reported Progress Worse PT-OP-F Manual Assessment Start: 05/05/22 11:36 Freq: Status: Active Protocol: Document 05/12/22 09:15 [facility] (Rec: 05/12/22 12:22 [facility] [id number]) Manual Assessments Soft Tissue Assessment Soft Tissue Mobility Assessment SO, paraspinals, UT, SCM & scalene tightness along w/ temporalis Joint Mobility Assessment Joint Mobility Assessment L rotated & L sheared C1; R rotated and R sheard C2 PT-OP-J Posture/Palpation/Skin Start: 05/05/22 11:36 Freq: Status: Active Protocol: Document 05/12/22 09:15 [facility] (Rec: 05/12/22 12:22 [facility] [id number]) Posture Evaluation Comments Posture Comments some inc kyphosis, fwd head, OA ext; sits very slouched PT-OP-K Range of Motion Start: 05/05/22 11:36 Freq: Status: Active Protocol: Document 08/03/22 13:00 [facility] (Rec: 08/03/22 13:51 [facility] [id number]) Cervical Spine Range of Motion Cervical Spine Active Degrees Flexion 60 Extension 52 Rotation Left 48 Rotation Right 55 Lateral Flexion Left 34 Lateral Flexion Right 43 Comments tightness R w/L SB, pain post w/ext, pain rotation R>L PT-OP-L Special Tests Start: 05/05/22 11:36 Freq: Status: Active Protocol: Document 05/12/22 09:15 [facility] (Rec: 05/12/22 12:22 [facility] [id number]) Special Tests Cervical Spine Special Tests Spurling's Test Test Results neg Vertebral Artery Test Results neg B Alar Ligament Test Results neg PT-OP-Q Treatments Start: 05/05/22 11:36 Freq: Status: Active Protocol: Document 08/03/22 13:00 [facility] (Rec: 08/03/22 13:51 [facility] [id number]) Manual Therapy Treatment Soft Tissue Mobilization ant Body Location B SCM Mobilization Type Rolling Intensity/Depth Moderate Body Position Supine post Body Location paraspinals B Mobilization Type Rolling Intensity/Depth Moderate Body Position Supine SO Body Location B Mobilization Type Sustained Pressure Intensity/Depth Moderate Body Position Supine Joint Mobilizations Cervical Comments C 1 transverse L & C2 transverse L: C1 AP Manual Traction Cervical Reps/Duration 30 sec x2 Self-Care/Home Management Treatment Education Other Education edu w/exercsies re: proper form. review w/pt and discussed traction and attempting mechanical traction today. discussed edu for anatomy of upper cervical & discussed pt's options of other care PT-OP-R Modalities Start: 05/05/22 11:36 Freq: Status: Active Protocol: Document 08/03/22 13:00 [facility] (Rec: 08/03/22 13:51 [facility] [id number]) Spinal Traction Traction Treatment Cervical Method Mechanical Patient Position Hooklying Force Applied (Pounds) 17 Duration of Treatment (Minutes) 15 PT-OP-T Assessment and Plan Start: 05/05/22 11:36 Freq: Status: Active Protocol: Document 08/03/22 13:00 [facility] (Rec: 08/03/22 13:51 [facility] [id number]) Physical Therapy Assessment Goals NDI Impairment 7/50 Casing Trimmer Goal (LTG) Pt will imrpove score to no greater than 2/50 to show improved function and dec pain LTG Duration 08/02/22 pain Short Term Goal (STG) Pt will report pain no more than 4 days a week. STG Duration 07/07/22 Shelter Goal (LTG) Pt will report no greater than 1/10 pain no more than 2x/ week. LTG Duration 08/02/22 ROM Short Term Goal (STG) Pt will be indep w/HEP STG Duration 07/07/22 Casing Trimmer Goal (LTG) Pt will have full neck ROM w/o inc pain at end ranges to allow for typical daily activities like drivign w/o inc pain. LTG Duration 08/02 ergonomics Short Term Goal (STG) Pt will bring in pic of desk set up and will make changes recommended by PT to set desk up more ergonomically. STG Duration 06/12 Shelter Goal (LTG) Pt will bring in pic of sleep set up and will make changes recommended by PT to more ergonomically. LTG Duration 07/17/22 Assessment Summary Assessment Since May 12, pt has been seen 5 days including today and IE . He has been doing exercises over past month but has not been seen in a month and prior to that was 1 prior for most recent appt. He did require edu for exercise perforamnce today and mechanical traction attempted today. COnt PT to help dec pain. Physical Therapy Plan Frequency and Duration Frequency of Treatment 1-2x/week Duration of treatment (weeks) 12 Plan of Care Start Date 08/03/22 Plan of Care End Date 10/26/22 Therapeutic Interventions Therapeutic Interventions Home Exercise Program,Joint Mobilizations,Manual Therapy, Neuromuscular Re-education, Patient/Caregiver Education, Self-Care/Home Management,Soft Tissue Mobilization,Taping, Therapeutic Activities, Therapeutic Exercises Modalities Cold Pack/Ice Massage,Electric Stimulation,Hot Packs, Traction- Mechanical, Ultrasound Next Visit Focus/Plan Next Note Type Treatment Note Next Visit Plan asess response to traction, cont to work to dec pain. Cont to encourage posture work
--- NOTE | 2022-08-03 13:52 | PT.OPPOC ---
Physical, Occupational & Speech Therapy At [facility] Current Diagnoses Other chronic pain (08/03/22) Cervicalgia (08/03/22) Headache, unspecified (08/03/22) Visit Care Team Role Provider Type Rosaura Brantley MD Other Providers Physician Specialty: Orthopedics Orthopedic Surgery Address: [address] [place] [address], [id number] Email: [email or web address] Callum Osei MD Attending Provider Physician Family Provider Primary Care Provider Referring Provider Specialty: Family Practice Address: [address] [place] [address], [id number] Email: [email or web address] Plan Of Care PT-OP-T Assessment and Plan Start: 05/05/22 11:36 Freq: Status: Active Protocol: Document 08/03/22 13:00 [facility] (Rec: 08/03/22 13:51 [facility] [id number]) Physical Therapy Assessment Goals NDI Impairment 7/50 Half-Way Goal (LTG) Pt will imrpove score to no greater than 2/50 to show improved function and dec pain LTG Duration 08/02/22 pain Short Term Goal (STG) Pt will report pain no more than 4 days a week. STG Duration 07/07/22 Wood Flour Miller Goal (LTG) Pt will report no greater than 1/10 pain no more than 2x/ week. LTG Duration 08/02/22 ROM Short Term Goal (STG) Pt will be indep w/HEP STG Duration 07/07/22 Wood Flour Miller Goal (LTG) Pt will have full neck ROM w/o inc pain at end ranges to allow for typical daily activities like drivign w/o inc pain. LTG Duration 08/02 ergonomics Short Term Goal (STG) Pt will bring in pic of desk set up and will make changes recommended by PT to set desk up more ergonomically. STG Duration 06/12 Wood Flour Miller Goal (LTG) Pt will bring in pic of sleep set up and will make changes recommended by PT to more ergonomically. LTG Duration 07/17/22 Assessment Summary Assessment Since May 12, pt has been seen 5 days including today and IE . He has been doing exercises over past month but has not been seen in a month and prior to that was 1 prior for most recent appt. He did require edu for exercise perforamnce today and mechanical traction attempted today. COnt PT to help dec pain. Physical Therapy Plan Frequency and Duration Frequency of Treatment 1-2x/week Duration of treatment (weeks) 12 Plan of Care Start Date 08/03/22 Plan of Care End Date 10/26/22 Therapeutic Interventions Therapeutic Interventions Home Exercise Program,Joint Mobilizations,Manual Therapy, Neuromuscular Re-education, Patient/Caregiver Education, Self-Care/Home Management,Soft Tissue Mobilization,Taping, Therapeutic Activities, Therapeutic Exercises Modalities Cold Pack/Ice Massage,Electric Stimulation,Hot Packs, Traction- Mechanical, Ultrasound Next Visit Focus/Plan Next Note Type Treatment Note Next Visit Plan asess response to traction, cont to work to dec pain. Cont to encourage posture work Plan of Care Dates Plan of Care Start Date 08/03/22 Plan of Care End Date 10/26/22 Electronically Signed by: Angelika Frausto, PT 08/03/22 7115 If you are in agreement with this Plan of Care, please return a signed and dated copy. I have reviewed this Plan of Care and certify that the skilled therapy services above are required to meet the patient?s needs. Physician Signature Date Printed Name and Credentials Clinical Instructor Signature Printed Name and Credentials
--- NOTE | 2022-08-08 11:36 | PT.OTN ---
Current Diagnoses Other chronic pain (08/08/22) Cervicalgia (08/08/22) Headache, unspecified (08/08/22) Physical Therapy Treatment Note PT-OP-A Visit Information Start: 05/05/22 11:36 Freq: Status: Active Protocol: Document 08/08/22 09:53 [facility] (Rec: 08/08/22 10:35 [facility] [id number]) Out-Patient Physical Therapy Visit Information Visit Information Visit Type Treatment Note Visit Start Time 09:50 Visit Stop Time 10:44 Total Visit Minutes 54 Visit Number 6 Number of DISTRIBUTED ENERGY SYSTEMS CONSULTANT Visits 0 PT-OP-B Current Condition Start: 05/05/22 11:36 Freq: Status: Active Protocol: Document 05/12/22 09:15 [facility] (Rec: 05/12/22 12:22 [facility] [id number]) Current Condition History of Current Condition Onset Date 2-3 years Current Complaints post head and neck pain History of Current Condition Pt reprots tension in post neck w/looking up and to sides . 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 Pt reports when he wakes up, he has pain. He wakes up in the middle of the night (sometimes just d/t going to bathroom). He has to stretch to get to bed. He doen 't take pain meds d/t not helpful. He hasn't tried ice or heat yet. Initially it felt like buring but now it is more like mm pain. Pt reports after a bad flu, the pain started about 2-3 years ago. He has an appt with Dr. Brantley next week. Pt reports he has back pain that limits him and B knee pain. L knee has some tingling pain since a few weeks ago. Pt reports he has occasional dizziness that just sometimes happens about 1x/ week or every couple weeks. Denies pain in any other part of his head. Denies lightheadedness or numbness or tingling. Prior Treatments and Tests Xray: IMPRESSION: No acute osseous lesion. If symptoms and/or clinical suspicion for pathology persists, evaluation with MRI should be considered for further assessment. PT-OP-C Subjective Start: 05/05/22 11:36 Freq: Status: Active Protocol: Document 08/08/22 09:53 [facility] (Rec: 08/08/22 10:35 [facility] [id number]) OP-PT Subjective Patient Comments Patient Comments Pt reports sat was a bad day so tried a lidocane patch and took ibupofen at night and he feels like that helped PT-OP-F Manual Assessment Start: 05/05/22 11:36 Freq: Status: Active Protocol: Document 05/12/22 09:15 [facility] (Rec: 05/12/22 12:22 [facility] [id number]) Manual Assessments Soft Tissue Assessment Soft Tissue Mobility Assessment SO, paraspinals, UT, SCM & scalene tightness along w/ temporalis Joint Mobility Assessment Joint Mobility Assessment L rotated & L sheared C1; R rotated and R sheard C2 PT-OP-J Posture/Palpation/Skin Start: 05/05/22 11:36 Freq: Status: Active Protocol: Document 05/12/22 09:15 [facility] (Rec: 05/12/22 12:22 [facility] [id number]) Posture Evaluation Comments Posture Comments some inc kyphosis, fwd head, OA ext; sits very slouched PT-OP-K Range of Motion Start: 05/05/22 11:36 Freq: Status: Active Protocol: Document 08/03/22 13:00 [facility] (Rec: 08/03/22 13:51 [facility] [id number]) Cervical Spine Range of Motion Cervical Spine Active Degrees Flexion 60 Extension 52 Rotation Left 48 Rotation Right 55 Lateral Flexion Left 34 Lateral Flexion Right 43 Comments tightness R w/L SB, pain post w/ext, pain rotation R>L PT-OP-L Special Tests Start: 05/05/22 11:36 Freq: Status: Active Protocol: Document 05/12/22 09:15 [facility] (Rec: 05/12/22 12:22 [facility] [id number]) Special Tests Cervical Spine Special Tests Spurling's Test Test Results neg Vertebral Artery Test Results neg B Alar Ligament Test Results neg PT-OP-Q Treatments Start: 05/05/22 11:36 Freq: Status: Active Protocol: Document 08/08/22 09:53 [facility] (Rec: 08/08/22 10:35 [facility] [id number]) Therapeutic Exercises Sitting Exercises chin tuck Reps/Minutes 5 Comments quick review stretches Sitting Exercise Name 1. UT 2. LS 3.SO Reps/Minutes quick review Manual Therapy Treatment Soft Tissue Mobilization ant Body Location L scalenes Mobilization Type Rolling Intensity/Depth Moderate Body Position Supine Comments w/rotation post Body Location paraspinals B Mobilization Type Rolling Intensity/Depth Moderate Body Position Supine SO Body Location B Mobilization Type Sustained Pressure Intensity/Depth Moderate Body Position Supine Joint Mobilizations Cervical Comments C2-5 transverse L FM C3-5 UAP L FM Manual Traction Cervical Reps/Duration 30 sec Self-Care/Home Management Treatment Education Other Education edu re: dermatomes and discussed how C1-5 could be affecting his head pain d/t where the nerves come out. Discussed out if lower vertebra are not working well, that puts more pressure higher also and can cause pain . pics ofd ermatome maps shown . Discussed possible use of pillow w/contour as pt asking about pillow like taht. discussed it has to fit his body perfect to wrok. Edu re: home traction unit options and taht it is not advised to sleep w/them x10min PT-OP-R Modalities Start: 05/05/22 11:36 Freq: Status: Active Protocol: Document 08/08/22 09:53 [facility] (Rec: 08/08/22 10:35 [facility] [id number]) Spinal Traction Traction Treatment Cervical Method Mechanical Patient Position Hooklying Force Applied (Pounds) 20 Duration of Treatment (Minutes) 15 PT-OP-T Assessment and Plan Start: 05/05/22 11:36 Freq: Status: Active Protocol: Document 08/08/22 09:53 [facility] (Rec: 08/08/22 10:35 [facility] [id number]) Physical Therapy Assessment Goals NDI Impairment 7/50 Residential Goal (LTG) Pt will imrpove score to no greater than 2/50 to show improved function and dec pain LTG Duration 08/02/22 pain Short Term Goal (STG) Pt will report pain no more than 4 days a week. STG Duration 07/07/22 Residential Goal (LTG) Pt will report no greater than 1/10 pain no more than 2x/ week. LTG Duration 08/02/22 ROM Short Term Goal (STG) Pt will be indep w/HEP STG Duration 07/07/22 Tile Burner Goal (LTG) Pt will have full neck ROM w/o inc pain at end ranges to allow for typical daily activities like drivign w/o inc pain. LTG Duration 08/02 ergonomics Short Term Goal (STG) Pt will bring in pic of desk set up and will make changes recommended by PT to set desk up more ergonomically. STG Duration 06/12 Residential Goal (LTG) Pt will bring in pic of sleep set up and will make changes recommended by PT to more ergonomically. LTG Duration 07/17/22 Assessment Summary Assessment Pt hurd dimprved SB R w/less discomfort and imrpoved B rotation w/still some stretch at end range w/R rotation only after manual. Pt did better w /exercises today. Physical Therapy Plan Frequency and Duration Frequency of Treatment 1-2x/week Duration of treatment (weeks) 12 Plan of Care Start Date 08/03/22 Plan of Care End Date 10/26/22 Next Visit Focus/Plan Next Note Type Treatment Note Next Visit Plan asess response to traction, cont to work to dec pain. Cont to encourage posture work
--- NOTE | 2022-08-11 18:59 | PT.OTN ---
Current Diagnoses Other chronic pain (08/11/22) Cervicalgia (08/11/22) Headache, unspecified (08/11/22) Physical Therapy Treatment Note PT-OP-A Visit Information Start: 05/05/22 11:36 Freq: Status: Active Protocol: Document 08/11/22 18:55 [facility] (Rec: 08/11/22 18:59 [facility] [id number]) Out-Patient Physical Therapy Visit Information Visit Information Visit Type Treatment Note Visit Start Time 11:20 Visit Stop Time 12:13 Total Visit Minutes 53 Visit Number 7 Number of PROFESSOR OF EDUCATION Visits 0 PT-OP-B Current Condition Start: 05/05/22 11:36 Freq: Status: Active Protocol: Document 05/12/22 09:15 [facility] (Rec: 05/12/22 12:22 [facility] [id number]) Current Condition History of Current Condition Onset Date 2-3 years Current Complaints post head and neck pain History of Current Condition Pt reprots tension in post neck w/looking up and to sides . 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 Pt reports when he wakes up, he has pain. He wakes up in the middle of the night (sometimes just d/t going to bathroom). He has to stretch to get to bed. He doen 't take pain meds d/t not helpful. He hasn't tried ice or heat yet. Initially it felt like buring but now it is more like mm pain. Pt reports after a bad flu, the pain started about 2-3 years ago. He has an appt with Dr. Brantley next week. Pt reports he has back pain that limits him and B knee pain. L knee has some tingling pain since a few weeks ago. Pt reports he has occasional dizziness that just sometimes happens about 1x/ week or every couple weeks. Denies pain in any other part of his head. Denies lightheadedness or numbness or tingling. Prior Treatments and Tests Xray: IMPRESSION: No acute osseous lesion. If symptoms and/or clinical suspicion for pathology persists, evaluation with MRI should be considered for further assessment. PT-OP-C Subjective Start: 05/05/22 11:36 Freq: Status: Active Protocol: Document 08/11/22 18:55 [facility] (Rec: 08/11/22 18:59 [facility] [id number]) OP-PT Subjective Patient Comments Patient Comments pt reports he sees ortho next week and neurosurgeon at beginning of aug PT-OP-F Manual Assessment Start: 05/05/22 11:36 Freq: Status: Active Protocol: Document 05/12/22 09:15 [facility] (Rec: 05/12/22 12:22 [facility] [id number]) Manual Assessments Soft Tissue Assessment Soft Tissue Mobility Assessment SO, paraspinals, UT, SCM & scalene tightness along w/ temporalis Joint Mobility Assessment Joint Mobility Assessment L rotated & L sheared C1; R rotated and R sheard C2 PT-OP-J Posture/Palpation/Skin Start: 05/05/22 11:36 Freq: Status: Active Protocol: Document 05/12/22 09:15 [facility] (Rec: 05/12/22 12:22 [facility] [id number]) Posture Evaluation Comments Posture Comments some inc kyphosis, fwd head, OA ext; sits very slouched PT-OP-K Range of Motion Start: 05/05/22 11:36 Freq: Status: Active Protocol: Document 08/03/22 13:00 [facility] (Rec: 08/03/22 13:51 [facility] [id number]) Cervical Spine Range of Motion Cervical Spine Active Degrees Flexion 60 Extension 52 Rotation Left 48 Rotation Right 55 Lateral Flexion Left 34 Lateral Flexion Right 43 Comments tightness R w/L SB, pain post w/ext, pain rotation R>L PT-OP-L Special Tests Start: 05/05/22 11:36 Freq: Status: Active Protocol: Document 05/12/22 09:15 [facility] (Rec: 05/12/22 12:22 [facility] [id number]) Special Tests Cervical Spine Special Tests Spurling's Test Test Results neg Vertebral Artery Test Results neg B Alar Ligament Test Results neg PT-OP-Q Treatments Start: 05/05/22 11:36 Freq: Status: Active Protocol: Document 08/11/22 18:55 [facility] (Rec: 08/11/22 18:59 [facility] [id number]) Manual Therapy Treatment Soft Tissue Mobilization cranium Mobilization Type Myofascial Release ant Body Location B SCM & scalenes Mobilization Type Rolling Intensity/Depth Moderate Body Position Supine Comments w/rotation post Body Location paraspinals B & UT Mobilization Type Rolling Intensity/Depth Moderate Body Position Supine SO Body Location B Mobilization Type Sustained Pressure Intensity/Depth Moderate Body Position Supine Joint Mobilizations thoracic Comments transverse R T1-2 FM Cervical Comments C2 UAP R FM Self-Care/Home Management Treatment Education Other Education review of stretches; edu to avoid stretch pt reports doing where he flexes head and protrudes and does upper cervical ext and uses hand to push into his head and notes pain. Discussed why this is not good for him d/t putting stress on upper cervical. Edu re: posture importances x8 min PT-OP-R Modalities Start: 05/05/22 11:36 Freq: Status: Active Protocol: Document 08/11/22 18:55 [facility] (Rec: 08/11/22 18:59 [facility] [id number]) Spinal Traction Traction Treatment Cervical Method Mechanical Patient Position Hooklying Force Applied (Pounds) 23 Duration of Treatment (Minutes) 15 PT-OP-T Assessment and Plan Start: 05/05/22 11:36 Freq: Status: Active Protocol: Document 08/11/22 18:55 [facility] (Rec: 08/11/22 18:59 [facility] [id number]) Physical Therapy Assessment Goals NDI Impairment 7/50 Correction Goal (LTG) Pt will imrpove score to no greater than 2/50 to show improved function and dec pain LTG Duration 08/02/22 pain Short Term Goal (STG) Pt will report pain no more than 4 days a week. STG Duration 07/07/22 Correction Goal (LTG) Pt will report no greater than 1/10 pain no more than 2x/ week. LTG Duration 08/02/22 ROM Short Term Goal (STG) Pt will be indep w/HEP STG Duration 07/07/22 Candy Wrapping Machine Operator Goal (LTG) Pt will have full neck ROM w/o inc pain at end ranges to allow for typical daily activities like drivign w/o inc pain. LTG Duration 08/02 ergonomics Short Term Goal (STG) Pt will bring in pic of desk set up and will make changes recommended by PT to set desk up more ergonomically. STG Duration 06/12 Candy Wrapping Machine Operator Goal (LTG) Pt will bring in pic of sleep set up and will make changes recommended by PT to more ergonomically. LTG Duration 07/17/22 Assessment Summary Assessment Improved ROM upon attending appt today and improved rotaiton w/manual. He still requires heavy encouragement for posture. Physical Therapy Plan Frequency and Duration Frequency of Treatment 1-2x/week Duration of treatment (weeks) 12 Plan of Care Start Date 08/03/22 Plan of Care End Date 10/26/22 Next Visit Focus/Plan Next Note Type Treatment Note Next Visit Plan asess response to traction, cont to work to dec pain. Cont to encourage posture work
--- NOTE | 2022-08-18 16:49 | PT.OTN ---
Current Diagnoses Other chronic pain (08/18/22) Cervicalgia (08/18/22) Headache, unspecified (08/18/22) Physical Therapy Treatment Note PT-OP-A Visit Information Start: 05/05/22 11:36 Freq: Status: Active Protocol: Document 08/18/22 14:49 [facility] (Rec: 08/18/22 16:49 [facility] [id number]) Out-Patient Physical Therapy Visit Information Visit Information Visit Type Treatment Note Visit Start Time 16:00 Visit Stop Time 16:58 Total Visit Minutes 58 Visit Number 8 Number of HAZARD MITIGATION OFFICER Visits 0 PT-OP-B Current Condition Start: 05/05/22 11:36 Freq: Status: Active Protocol: Document 05/12/22 09:15 [facility] (Rec: 05/12/22 12:22 [facility] [id number]) Current Condition History of Current Condition Onset Date 2-3 years Current Complaints post head and neck pain History of Current Condition Pt reprots tension in post neck w/looking up and to sides . 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 Pt reports when he wakes up, he has pain. He wakes up in the middle of the night (sometimes just d/t going to bathroom). He has to stretch to get to bed. He doen 't take pain meds d/t not helpful. He hasn't tried ice or heat yet. Initially it felt like buring but now it is more like mm pain. Pt reports after a bad flu, the pain started about 2-3 years ago. He has an appt with Dr. Brantley next week. Pt reports he has back pain that limits him and B knee pain. L knee has some tingling pain since a few weeks ago. Pt reports he has occasional dizziness that just sometimes happens about 1x/ week or every couple weeks. Denies pain in any other part of his head. Denies lightheadedness or numbness or tingling. Prior Treatments and Tests Xray: IMPRESSION: No acute osseous lesion. If symptoms and/or clinical suspicion for pathology persists, evaluation with MRI should be considered for further assessment. PT-OP-C Subjective Start: 05/05/22 11:36 Freq: Status: Active Protocol: Document 08/18/22 14:49 [facility] (Rec: 08/18/22 16:49 [facility] [id number]) OP-PT Subjective Patient Comments Patient Comments Pt reports still waking after 1-2 hours d/t pain. Can stretch to help with pain. Pain isnt too bad during the day. Traction was a little too much. Pt saw Dr. Brantley who told him MRI was unremarkable and needs to give PT more of a chance. PT-OP-F Manual Assessment Start: 05/05/22 11:36 Freq: Status: Active Protocol: Document 05/12/22 09:15 [facility] (Rec: 05/12/22 12:22 [facility] [id number]) Manual Assessments Soft Tissue Assessment Soft Tissue Mobility Assessment SO, paraspinals, UT, SCM & scalene tightness along w/ temporalis Joint Mobility Assessment Joint Mobility Assessment L rotated & L sheared C1; R rotated and R sheard C2 PT-OP-J Posture/Palpation/Skin Start: 05/05/22 11:36 Freq: Status: Active Protocol: Document 05/12/22 09:15 [facility] (Rec: 05/12/22 12:22 [facility] [id number]) Posture Evaluation Comments Posture Comments some inc kyphosis, fwd head, OA ext; sits very slouched PT-OP-K Range of Motion Start: 05/05/22 11:36 Freq: Status: Active Protocol: Document 08/03/22 13:00 [facility] (Rec: 08/03/22 13:51 [facility] [id number]) Cervical Spine Range of Motion Cervical Spine Active Degrees Flexion 60 Extension 52 Rotation Left 48 Rotation Right 55 Lateral Flexion Left 34 Lateral Flexion Right 43 Comments tightness R w/L SB, pain post w/ext, pain rotation R>L PT-OP-L Special Tests Start: 05/05/22 11:36 Freq: Status: Active Protocol: Document 05/12/22 09:15 [facility] (Rec: 05/12/22 12:22 [facility] [id number]) Special Tests Cervical Spine Special Tests Spurling's Test Test Results neg Vertebral Artery Test Results neg B Alar Ligament Test Results neg PT-OP-Q Treatments Start: 05/05/22 11:36 Freq: Status: Active Protocol: Document 08/18/22 14:49 [facility] (Rec: 08/18/22 16:49 [facility] [id number]) Therapeutic Exercises Sitting Exercises isometrics Sitting Exercise Name SB Side bilateral Reps/Minutes 5sec x10 Comments cues for not too strong of pressure chin tuck Equipment Used L1 Reps/Minutes 20 Comments max cues for form and to slow down Manual Therapy Treatment Soft Tissue Mobilization post Body Location paraspinals B & UT Mobilization Type Rolling Intensity/Depth Moderate Body Position Supine SO Body Location B Mobilization Type Sustained Pressure Intensity/Depth Moderate Body Position Supine Joint Mobilizations rib Joint L 1st rib caudal FM Cervical Comments C3 & 4 UPA R FM up glide L C 3 FM transverse glide c4 FM Self-Care/Home Management Treatment Education Other Education cont edu on importance of posture with mult cues of when pt was flexing fwd and going into bad posture. Edu to work on this at home and at desk. Edu to avoid the device pt showed PT last time that put neck into ext vs traction and demo to model how that compresses the segments instead of opening, quick verbal review of stretches x10 min PT-OP-R Modalities Start: 05/05/22 11:36 Freq: Status: Active Protocol: Document 08/18/22 14:49 [facility] (Rec: 08/18/22 16:49 [facility] [id number]) Spinal Traction Traction Treatment Cervical Method Mechanical Patient Position Hooklying Force Applied (Pounds) 20 Duration of Treatment (Minutes) 15 PT-OP-T Assessment and Plan Start: 05/05/22 11:36 Freq: Status: Active Protocol: Document 08/18/22 14:49 [facility] (Rec: 08/18/22 16:49 [facility] [id number]) Physical Therapy Assessment Goals NDI Impairment 7/50 Oakes Machine Operator Goal (LTG) Pt will imrpove score to no greater than 2/50 to show improved function and dec pain LTG Duration 08/02/22 pain Short Term Goal (STG) Pt will report pain no more than 4 days a week. STG Duration 07/07/22 Oakes Machine Operator Goal (LTG) Pt will report no greater than 1/10 pain no more than 2x/ week. LTG Duration 08/02/22 ROM Short Term Goal (STG) Pt will be indep w/HEP STG Duration 07/07/22 Long-Term Goal (LTG) Pt will have full neck ROM w/o inc pain at end ranges to allow for typical daily activities like drivign w/o inc pain. LTG Duration 08/02 ergonomics Short Term Goal (STG) Pt will bring in pic of desk set up and will make changes recommended by PT to set desk up more ergonomically. STG Duration 06/12 Long-Term Goal (LTG) Pt will bring in pic of sleep set up and will make changes recommended by PT to more ergonomically. LTG Duration 07/17/22 Assessment Summary Assessment pt still requiers a lot of education re: posture and how this can be undoing all his stretching and self massage the feels like it releases his neck. Physical Therapy Plan Frequency and Duration Frequency of Treatment 1-2x/week Duration of treatment (weeks) 12 Plan of Care Start Date 08/03/22 Plan of Care End Date 10/26/22 Next Visit Focus/Plan Next Note Type Treatment Note Next Visit Plan asess response to traction, cont to work to dec pain. Cont to encourage posture work
--- NOTE | 2022-10-27 17:52 | PT.OPDS ---
"Current Diagnoses Other chronic pain (08/18/22) Cervicalgia (08/18/22) Headache, unspecified (08/18/22) Visit Care Team Role Provider Type Rosaura Brantley MD Other Providers Physician Specialty: Orthopedics Orthopedic Surgery Address: [address] [place] [address], [id number] Email: [email or web address] VIP Callum Osei MD Attending Provider Physician Family Provider Primary Care Provider Referring Provider Specialty: Family Practice Address: [address] [place] [address], [id number] Email: [email or web address] Visit Number Visit Number 8 Discharge Summary PT-OP-B Current Condition Start: 05/05/22 11:36 Freq: Status: Active Protocol: Document 05/12/22 09:15 [facility] (Rec: 05/12/22 12:22 [facility] [id number]) Current Condition History of Current Condition Onset Date 2-3 years Current Complaints post head and neck pain History of Current Condition Pt reprots tension in post neck w/looking up and to sides . 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 Pt reports when he wakes up, he has pain. He wakes up in the middle of the night (sometimes just d/t going to bathroom). He has to stretch to get to bed. He doen 't take pain meds d/t not helpful. He hasn't tried ice or heat yet. Initially it felt like buring but now it is more like mm pain. Pt reports after a bad flu, the pain started about 2-3 years ago. He has an appt with Dr. Brantley next week. Pt reports he has back pain that limits him and B knee pain. L knee has some tingling pain since a few weeks ago. Pt reports he has occasional dizziness that just sometimes happens about 1x/ week or every couple weeks. Denies pain in any other part of his head. Denies lightheadedness or numbness or tingling. Prior Treatments and Tests Xray: IMPRESSION: No acute osseous lesion. If symptoms and/or clinical suspicion for pathology persists, evaluation with MRI should be considered for further assessment. PT-OP-C Subjective Start: 05/05/22 11:36 Freq: Status: Active Protocol: Document 08/18/22 14:49 [facility] (Rec: 08/18/22 16:49 [facility] [id number]) OP-PT Subjective Patient Comments Patient Comments Pt reports still waking after 1-2 hours d/t pain. Can stretch to help with pain. Pain isnt too bad during the day. Traction was a little too much. Pt saw Dr. Brantley who told him MRI was unremarkable and needs to give PT more of a chance. PT-OP-F Manual Assessment Start: 05/05/22 11:36 Freq: Status: Active Protocol: Document 05/12/22 09:15 [facility] (Rec: 05/12/22 12:22 [facility] [id number]) Manual Assessments Soft Tissue Assessment Soft Tissue Mobility Assessment SO, paraspinals, UT, SCM & scalene tightness along w/ temporalis Joint Mobility Assessment Joint Mobility Assessment L rotated & L sheared C1; R rotated and R sheard C2 PT-OP-J Posture/Palpation/Skin Start: 05/05/22 11:36 Freq: Status: Active Protocol: Document 05/12/22 09:15 [facility] (Rec: 05/12/22 12:22 [facility] [id number]) Posture Evaluation Comments Posture Comments some inc kyphosis, fwd head, OA ext; sits very slouched PT-OP-K Range of Motion Start: 05/05/22 11:36 Freq: Status: Active Protocol: Document 08/03/22 13:00 [facility] (Rec: 08/03/22 13:51 [facility] [id number]) Cervical Spine Range of Motion Cervical Spine Active Degrees Flexion 60 Extension 52 Rotation Left 48 Rotation Right 55 Lateral Flexion Left 34 Lateral Flexion Right 43 Comments tightness R w/L SB, pain post w/ext, pain rotation R>L PT-OP-L Special Tests Start: 05/05/22 11:36 Freq: Status: Active Protocol: Document 05/12/22 09:15 [facility] (Rec: 05/12/22 12:22 [facility] [id number]) Special Tests Cervical Spine Special Tests Spurling's Test Test Results neg Vertebral Artery Test Results neg B Alar Ligament Test Results neg PT-OP-T Assessment and Plan Start: 05/05/22 11:36 Freq: Status: Active Protocol: Document 10/27/22 17:51 [facility] (Rec: 10/27/22 17:52 [facility] [id number]) Physical Therapy Assessment Goals NDI Impairment 7/50 Furnace Packer Goal (LTG) Pt will imrpove score to no greater than 2/50 to show improved function and dec pain LTG Duration 08/02/22 pain Short Term Goal (STG) Pt will report pain no more than 4 days a week. STG Duration 07/07/22 Custodial Goal (LTG) Pt will report no greater than 1/10 pain no more than 2x/ week. LTG Duration 08/02/22 ROM Short Term Goal (STG) Pt will be indep w/HEP STG Duration 07/07/22 Furnace Packer Goal (LTG) Pt will have full neck ROM w/o inc pain at end ranges to allow for typical daily activities like drivign w/o inc pain. LTG Duration 08/02 ergonomics Short Term Goal (STG) Pt will bring in pic of desk set up and will make changes recommended by PT to set desk up more ergonomically. STG Duration 06/12 Custodial Goal (LTG) Pt will bring in pic of sleep set up and will make changes recommended by PT to more ergonomically. LTG Duration 07/17/22 Assessment Summary Assessment help desk associate Spoke with patient. He will be seeing a chiropractor the first week of October and doesn't want to be seen for pt before he has his appt. It was explained to him that his POC expires on 10/26 and if he would like to continue to be seen for pt, he will need to be scheduled with a PT by that date or will need to get a new referral from his doctor. Patient doesn 't feel that pt is what he needs right now and wants to see a chiropractor to see if that helps him. Pt was not makng much progress w/PT but did not bring in pics requersted by PT and required a lot of cues for posture and pt often sat and stood w/upper cervical ext. DC d/t no longer attending PT Physical Therapy Plan Discharge Physical Therapy Discharge Reasons No Longer Attending PT 33"
== END 2022-10-31 14:18 | disposition home or self-care (01) ==
LOC: PHYS 16:00
PROVIDERS: Absent Provider Orthopaedic Surgery Orthopaedic Surgery of the Spine; Family Provider Family Medicine; PCP Family Medicine; Referring Provider Family Medicine; Visit Provider Family Medicine
DX: R51.9 Headache, unspecified (principal); G89.29 Other chronic pain; M54.2 Cervicalgia
CPT/HCPCS: 97012; 97110; 97140; 97161; 97535

== ENCOUNTER → 2023-01-13 09:46 | Outpatient (CLI) | payer OTHER, SELFPAY ==
[2023-01-13 12:01] LABS: Add Manual Diff / Slide Review NO; Basophils Absolute Auto 100 /uL (0-100); Basophils Percent Auto 1.2 % (0-2); Eosinophils Absolute Auto 100 /uL (0-450); Eosinophils Percent Auto 1.9 % (2-4); Hematocrit 41.7 % (41-53); Hemoglobin 14.3 g/dL (13.5-17.5); Lymphocytes Absolute Auto 1500 /uL (1100-4500); Lymphocytes Percent Auto 32.2 % (25-40); Mean Corpuscular HGB Conc 34.2 % (30-36); Mean Corpuscular Hemoglobin 29.1 PG (26-34); Mean Corpuscular Volume 85.1 fL (80-100); Monocytes Absolute Auto 300 /uL (0-900); Neutrophils Absolute Auto 2700 /uL (1500-7000); Neutrophils Percent Auto 58.7 % (50-75); Platelet Count 205 X10^3/uL (150-400); Red Cell Distribution Width 12.5 % (11.6-14.8); White Blood Cell Count 4.6 X10^3/uL (4.5-11.0)
[2023-01-13 12:25] LABS: BUN Creatinine Ratio 17.4 (6-22); Blood Urea Nitrogen 15 mg/dL (9-20); Calcium 8.5 mg/dL (8.4-10.2); Carbon Dioxide 30 mmol/L (22-32); Chloride 102 mmol/L (98-107); Cholesterol 199 mg/dL (140-199); Estimated Glomerular Filt Rate > 60 mL/min (>60); Glucose 93 mg/dL (80-110); HDL Cholesterol 66 mg/dL (40-60); HEMOLYSIS < 15 (0-50); LDL Cholesterol Calculated 113 mg/dL (<100); Potassium 4.4 mmol/L (3.4-5.1); Sodium 138 mmol/L (137-145); Triglycerides 99 mg/dL (35-150)
[2023-01-13 12:54] LABS: Prostate Specific Antigen Scrn 8.22 ng/mL (0.1-4.0)
== END ==
PROVIDERS: Family Provider Family Medicine; PCP Family Medicine; Referring Provider Family Medicine; Visit Provider Family Medicine
DX: K21.9 Gastro-esophageal reflux disease without esophagitis (principal); E78.5 Hyperlipidemia, unspecified; R97.20 Elevated prostate specific antigen [PSA]; Z12.5 Encounter for screening for malignant neoplasm of prostate; Z80.42 Family history of malignant neoplasm of prostate
CPT/HCPCS: 36415; 80048; 80061; 85025; G0103

== ENCOUNTER → 2023-03-31 10:45 | Outpatient (CLI) | payer OTHER, SELFPAY ==
--- NOTE | 2023-03-31 10:46 | DI.RAD.S_ITS ---
PROCEDURE: XR CHEST 2V INDICATIONS: chronic cough TECHNIQUE: 2 views of the chest were acquired. COMPARISON: None. FINDINGS: Surgical changes and devices: None. Lungs and pleura: Lungs are clear. No pleural effusions or pneumothorax. Mediastinum: Mediastinal contours are normal. Heart size is normal. Bones and chest wall: No suspicious bony abnormalities. Soft tissues appear unremarkable. IMPRESSION: No acute radiographic abnormality. Dictated by: John North M.D. on 03/31/2023 at 13:20 Approved by: John North M.D. on 03/31/2023 at 13:20
== END ==
PROVIDERS: Family Provider Family Medicine; PCP Family Medicine; Referring Provider Family Medicine; Visit Provider Family Medicine
DX: J30.9 Allergic rhinitis, unspecified (principal); K21.9 Gastro-esophageal reflux disease without esophagitis; R05.3 Chronic cough
CPT/HCPCS: 71046

== ENCOUNTER → 2023-05-03 17:24 | Outpatient (CLI) | payer OTHER, SELFPAY ==
[2023-05-03 18:26] LABS: Prostate Specific Antigen Scrn 10.4 ng/mL (0.1-4.0)
== END ==
PROVIDERS: Family Provider Family Medicine; PCP Family Medicine; Referring Provider Family Medicine; Visit Provider Family Medicine
DX: Z12.5 Encounter for screening for malignant neoplasm of prostate (principal); R97.20 Elevated prostate specific antigen [PSA]; N40.1 Benign prostatic hyperplasia with lower urinary tract symptoms
CPT/HCPCS: 36415; 84153; G0103

== ENCOUNTER → 2023-07-29 10:54 | Outpatient (CLI) | payer OTHER, SELFPAY ==
[2023-08-01 09:12] LABS: PSA Free % 10.7 % (.); PSA, Total 7.3 ng/mL (0.0-4.0)
== END ==
LOC: LAB 10:55
PROVIDERS: Family Provider Family Medicine; PCP Family Medicine; Referring Provider Urology; Visit Provider Internal Medicine Gastroenterology
DX: R97.20 Elevated prostate specific antigen [PSA] (principal); N40.1 Benign prostatic hyperplasia with lower urinary tract symptoms; N13.8 Other obstructive and reflux uropathy; Z87.19 Personal history of other diseases of the digestive system
CPT/HCPCS: 36415; 84153; 84154

== ENCOUNTER → 2023-10-13 15:19 | Outpatient (CLI) | payer OTHER, SELFPAY | LOC: RESP 15:20 | PROVIDERS: Family Provider Family Medicine; PCP Family Medicine; Referring Provider Family Medicine; Visit Provider Family Medicine | DX: R05.3 Chronic cough (principal) | CPT/HCPCS: 94060; 94726; 94729 ==

== ENCOUNTER → 2023-10-26 08:50 | Outpatient (CLI) | payer OTHER, SELFPAY ==
--- NOTE | 2023-10-26 08:51 | DI.RAD.S_ITS ---
PROCEDURE: XR CHEST 2V INDICATIONS: Air Trapping on PFT TECHNIQUE: 2 views of the chest were acquired. COMPARISON: [facility], , XR CHEST 2V, 03/31/2023, 11:05. FINDINGS: Surgical changes and devices: None. Lungs and pleura: Lungs are clear. No pleural effusions or pneumothorax. Mediastinum: Mediastinal contours are normal. Heart size is normal. Bones and chest wall: No suspicious bony abnormalities. Soft tissues appear unremarkable. IMPRESSION: No acute cardiopulmonary disease. Dictated by: Marcus Paul RR Interpreted: Martin Ramirez MD on 10/26/2023 at 9:16 Transcribed by: PAPO on 10/26/2023 at 9:31 Approved by: Martin Ramirez M.D. on 10/27/2023 at 9:12
--- NOTE | 2023-10-26 08:51 | DI.US.S_ITS ---
PROCEDURE: US ABDOMEN LIMITED INDICATIONS: LIVER CYSTS TECHNIQUE: Real-time scanning was performed of the abdominal and retroperitoneal organs, with image documentation. COMPARISON: [facility], , US ABDOMEN LIMITED, 06/23/2022, 7:09. FINDINGS: Liver: Liver is normal in size and homogeneous in echotexture. Multiple hepatic cysts, largest measuring up to 4.7 cm which appears similar prior examination. Gallbladder: No gallstones. No wall thickening. No pericholecystic edema. Negative sonographic Rankin's sign. Biliary ducts: Intrahepatic bile ducts are non-dilated. Extrahepatic bile duct caliber focally dilated to 8.3 mm. Normal is 6-7 mm or less in diameter, or 10 mm or less post-cholecystectomy. Pancreas: Visualized portions of the pancreas are sonographically normal. Miscellaneous: No free abdominal fluid. IMPRESSION: 1. Multiple hepatic cysts redemonstrated, largest measuring up to 4.7 cm similar prior examination. 2. Extrahepatic bile duct prominent measuring up to 8 mm similar prior examination. Dictated by: Marcus Paul [facility] Interpreted: Martin Ramirez MD on 10/26/2023 at 9:32 Transcribed by: PAPO on 10/26/2023 at 9:34 Approved by: Martin Ramirez M.D. on 10/27/2023 at 9:12
== END ==
LOC: US 08:51
PROVIDERS: Family Provider Family Medicine; PCP Family Medicine; Referring Provider Family Medicine; Visit Provider Family Medicine
DX: R94.2 Abnormal results of pulmonary function studies (principal); K76.89 Other specified diseases of liver; K83.8 Other specified diseases of biliary tract
CPT/HCPCS: 71046; 76705

== ENCOUNTER → 2023-11-04 12:35 | Outpatient (CLI) | payer OTHER, SELFPAY ==
[2023-11-04 13:16] LABS: Add Manual Diff / Slide Review NO; Basophils Absolute Auto 0 /uL (0-100); Basophils Percent Auto 0.4 % (0-2); Eosinophils Absolute Auto 100 /uL (0-450); Eosinophils Percent Auto 1.4 % (2-4); Hematocrit 41.8 % (41-53); Hemoglobin 14.1 g/dL (13.5-17.5); Lymphocytes Absolute Auto 2000 /uL (1100-4500); Lymphocytes Percent Auto 29.9 % (25-40); Mean Corpuscular HGB Conc 33.8 % (30-36); Mean Corpuscular Hemoglobin 29.5 PG (26-34); Mean Corpuscular Volume 87.3 fL (80-100); Monocytes Absolute Auto 500 /uL (0-900); Monocytes Percent Auto 6.9 % (3-14); Neutrophils Absolute Auto 4200 /uL (1500-7000); Neutrophils Percent Auto 61.4 % (50-75); Platelet Count 213 X10^3/uL (150-400); Red Blood Cell Count 4.79 X10^6/uL (4.5-5.9); White Blood Cell Count 6.8 X10^3/uL (4.5-11.0)
[2023-11-04 13:41] LABS: Alanine Aminotransferase 25 IU/L (<50); Albumin Globulin Ratio 1.4 (1.0-2.8); Alkaline Phosphatase 73 U/L (38-126); Aspartate Aminotransferase 27 IU/L (17-59); BUN Creatinine Ratio 16.9 (6-22); Bilirubin Total 0.7 mg/dL (0.2-1.3); Blood Urea Nitrogen 14 mg/dL (9-20); Calcium 9.3 mg/dL (8.4-10.2); Carbon Dioxide 29 mmol/L (22-32); Chloride 106 mmol/L (98-107); Estimated Glomerular Filt Rate > 60 mL/min (>60); Globulin 2.9 g/dL (1.7-4.1); Glucose 93 mg/dL (80-110); HEMOLYSIS < 15 (0-50); Sodium 138 mmol/L (137-145); Total Protein 6.9 g/dL (6.3-8.2)
[2023-11-06 07:12] LABS: Apolipoprotein B 96 mg/dL (<90)
== END ==
LOC: LAB 12:39
PROVIDERS: Family Provider Family Medicine; PCP Family Medicine; Referring Provider Family Medicine; Visit Provider Family Medicine
DX: N40.1 Benign prostatic hyperplasia with lower urinary tract symptoms (principal); N13.8 Other obstructive and reflux uropathy; E78.5 Hyperlipidemia, unspecified; K21.9 Gastro-esophageal reflux disease without esophagitis; R73.9 Hyperglycemia, unspecified
CPT/HCPCS: 36415; 80053; 82172; 85025

== ENCOUNTER → 2024-01-20 07:49 | Outpatient (CLI) | payer OTHER, SELFPAY ==
[2024-01-20 09:19] LABS: Cholesterol 228 mg/dL (140-199); HDL Cholesterol 64 mg/dL (40-60); LDL Cholesterol Calculated 139 mg/dL (<100); Triglycerides 125 mg/dL (35-150)
[2024-01-20 09:37] LABS: Vitamin D 25 Hydroxy (D3) 42.7 ng/mL (30.0-100.0)
== END ==
PROVIDERS: Family Provider Family Medicine; PCP Family Medicine; Referring Provider Family Medicine; Visit Provider Family Medicine
DX: N40.1 Benign prostatic hyperplasia with lower urinary tract symptoms (principal); N13.8 Other obstructive and reflux uropathy; E78.5 Hyperlipidemia, unspecified; K21.9 Gastro-esophageal reflux disease without esophagitis; R73.9 Hyperglycemia, unspecified
CPT/HCPCS: 80061; 82306

== ENCOUNTER → 2024-02-16 17:06 | Outpatient (CLI) | payer OTHER, SELFPAY ==
[2024-02-18 08:08] LABS: PSA Free % 11.7 % (.); PSA, Total 8.2 ng/mL (0.0-4.0)
== END ==
PROVIDERS: Family Provider Family Medicine; PCP Family Medicine; Referring Provider Family Medicine; Visit Provider Family Medicine
DX: R97.20 Elevated prostate specific antigen [PSA] (principal); N40.1 Benign prostatic hyperplasia with lower urinary tract symptoms; N13.8 Other obstructive and reflux uropathy; Z80.42 Family history of malignant neoplasm of prostate
CPT/HCPCS: 36415; 84153; 84154

== ENCOUNTER → 2024-07-09 14:34 | Outpatient (CLI) | payer OTHER, SELFPAY ==
[2024-07-11 07:08] LABS: PSA Free % 11.3 % (.); PSA, Total 7.5 ng/mL (0.0-4.0)
== END ==
PROVIDERS: Family Provider Family Medicine; PCP Family Medicine; Referring Provider Urology; Visit Provider Urology
DX: R97.20 Elevated prostate specific antigen [PSA] (principal)
CPT/HCPCS: 36415; 84153; 84154

== ENCOUNTER → 2024-09-27 16:49 | Outpatient (CLI) | payer OTHER, SELFPAY ==
[2024-09-27 17:49] LABS: Appearance Urine UA CLEAR; Bilirubin Urine UA NEGATIVE (NEGATIVE); Color Urine UA YELLOW; Glucose Urine UA NEGATIVE (Negative); Ketones Urine UA NEGATIVE (NEGATIVE); Leukocyte Esterase Urine UA NEGATIVE (NEGATIVE); Nitrite Urine UA NEGATIVE (Negative); Occult Blood Urine UA NEGATIVE (Negative); Protein Urine UA NEGATIVE (Negative); Urobilinogen Urine UA 0.2 E.U./dL (0.2)
[2024-09-27 17:57] LABS: Bacteria Urine None Seen; Culture Indicated Urine Cult Not Indicated; RBC Urine 0-1/HPF (0-5/HPF); Squamous Epithelial Cell Urine None Seen (0-5/HPF); Urine Volume 10mL (spun); WBC Urine 0-1/HPF (0-5/HPF)
== END ==
LOC: LAB 16:50
PROVIDERS: Family Provider Family Medicine; PCP Family Medicine; Referring Provider Family Medicine; Visit Provider Family Medicine
DX: R82.90 Unspecified abnormal findings in urine (principal)
CPT/HCPCS: 81001

== ENCOUNTER → 2024-11-09 08:25 | Outpatient (CLI) | payer OTHER, SELFPAY ==
[2024-11-09 09:10] LABS: Add Manual Diff / Slide Review NO; Basophils Absolute Auto 0 /uL (0-100); Basophils Percent Auto 0.9 % (0-2); Eosinophils Absolute Auto 100 /uL (0-450); Eosinophils Percent Auto 1.5 % (2-4); Hemoglobin 14.2 g/dL (13.5-17.5); Lymphocytes Absolute Auto 1700 /uL (1100-4500); Lymphocytes Percent Auto 33.4 % (25-40); Mean Corpuscular HGB Conc 33.8 % (30-36); Mean Corpuscular Hemoglobin 29.2 PG (26-34); Mean Corpuscular Volume 86.4 fL (80-100); Monocytes Absolute Auto 300 /uL (0-900); Monocytes Percent Auto 5.6 % (3-14); Neutrophils Absolute Auto 3000 /uL (1500-7000); Neutrophils Percent Auto 58.6 % (50-75); Platelet Count 193 X10^3/uL (150-400); Red Blood Cell Count 4.86 X10^6/uL (4.5-5.9); Red Cell Distribution Width 12.7 % (11.6-14.8); White Blood Cell Count 5.1 X10^3/uL (4.5-11.0)
[2024-11-09 09:20] LABS: Hemoglobin A1C% w Est Avg Glu 5.2 % (4.0-6.0)
[2024-11-09 09:43] LABS: Alanine Aminotransferase 27 IU/L (<50); Albumin 4.2 g/dL (3.5-5.0); Albumin Globulin Ratio 1.4 (1.0-2.8); Alkaline Phosphatase 64 U/L (38-126); Aspartate Aminotransferase 32 IU/L (17-59); BUN Creatinine Ratio 14.6 (6-22); Bilirubin Total 1.1 mg/dL (0.2-1.3); Blood Urea Nitrogen 13 mg/dL (9-20); Calcium 9.2 mg/dL (8.4-10.2); Carbon Dioxide 27 mmol/L (22-32); Chloride 105 mmol/L (98-107); Cholesterol 219 mg/dL (140-199); Estimated Glomerular Filt Rate > 60 mL/min (>60); Globulin 2.9 g/dL (1.7-4.1); Glucose 96 mg/dL (80-110); HDL Cholesterol 66 mg/dL (40-60); HEMOLYSIS < 15 (0-50); LDL Cholesterol Calculated 133 mg/dL (<100); Potassium 4.1 mmol/L (3.4-5.1); Sodium 138 mmol/L (137-145); Total Protein 7.1 g/dL (6.3-8.2); Triglycerides 102 mg/dL (35-150)
[2024-11-09 10:12] LABS: TSH w/ Reflex to FT4 0.84 uIU/mL (0.47-4.68)
== END ==
LOC: LAB 08:26
PROVIDERS: Family Provider Family Medicine; PCP Family Medicine; Referring Provider Family Medicine; Visit Provider Family Medicine
DX: Z00.00 Encounter for general adult medical examination without abnormal findings (principal); F51.04 Psychophysiologic insomnia; N40.1 Benign prostatic hyperplasia with lower urinary tract symptoms; K64.4 Residual hemorrhoidal skin tags; N13.8 Other obstructive and reflux uropathy; E78.00 Pure hypercholesterolemia, unspecified
CPT/HCPCS: 36415; 80053; 80061; 83036; 84443; 85025

== ENCOUNTER → 2025-01-11 12:26 | Outpatient (CLI) | payer OTHER, SELFPAY | PROVIDERS: Family Provider Family Medicine; PCP Family Medicine; Referring Provider Family Medicine; Visit Provider Family Medicine | DX: Z00.00 Encounter for general adult medical examination without abnormal findings (principal); Z12.5 Encounter for screening for malignant neoplasm of prostate | CPT/HCPCS: G0103 ==

== ENCOUNTER → 2025-05-17 10:14 | Outpatient (CLI) | payer MEDICARE, SELFPAY ==
[2025-05-17 10:55] LABS: Add Manual Diff / Slide Review NO; Hematocrit 44.5 % (41-53); Hemoglobin 15.0 g/dL (13.5-17.5); Lymphocytes Absolute Auto 1600 /uL (1100-4500); Mean Corpuscular HGB Conc 33.8 % (30-36); Mean Corpuscular Hemoglobin 28.7 PG (26-34); Mean Corpuscular Volume 85.1 fL (80-100); Platelet Count 225 X10^3/uL (150-400)
[2025-05-17 11:31] LABS: Alanine Aminotransferase 31 IU/L (<50); Albumin 4.3 g/dL (3.5-5.0); Albumin Globulin Ratio 1.4 (1.0-2.8); Alkaline Phosphatase 55 U/L (38-126); Blood Urea Nitrogen 16 mg/dL (9-20); Calcium 9.1 mg/dL (8.4-10.2); Carbon Dioxide 29 mmol/L (22-32); Chloride 102 mmol/L (98-107); Cholesterol 213 mg/dL (140-199); Estimated Glomerular Filt Rate > 60 mL/min (>60); Globulin 3.0 g/dL (1.7-4.1); Glucose 93 mg/dL (70-99); HDL Cholesterol 69 mg/dL (40-60); HEMOLYSIS < 15 (0-50); Potassium 4.5 mmol/L (3.4-5.1); Sodium 137 mmol/L (137-145); Total Protein 7.3 g/dL (6.3-8.2); Triglycerides 140 mg/dL (35-150)
[2025-05-17 12:02] LABS: Prostate Specific Antigen 9.82 ng/mL (0.10-4.00); TSH w/ Reflex to FT4 0.90 uIU/mL (0.47-4.68)
== END ==
PROVIDERS: PCP Family Medicine; Referring Provider Family Medicine; Visit Provider Family Medicine
DX: M54.2 Cervicalgia (principal); E78.5 Hyperlipidemia, unspecified; R97.20 Elevated prostate specific antigen [PSA]; G89.29 Other chronic pain; M47.812 Spondylosis without myelopathy or radiculopathy, cervical region; Z80.42 Family history of malignant neoplasm of prostate; M54.50 Low back pain, unspecified
CPT/HCPCS: 36415; 80053; 80061; 84153; 84443; 85025